=== PATIENT | male | born 1945 | race Caucasian/White ===

== ENCOUNTER 2016-11-21 11:01 | Day surgery (SDC) | payer MEDICARE ==
[~2016-11-21 11:01] MED LIST: Acetaminophen TAB* 325 MG PO PRN; Buffered Lidocaine 1% SYR 3ML* 3 ML/SYR SYRINGE INTRADERM ONE; mitoMYcin PWD* 0.2 MG in Sterile Water for Inj* 1 ML OPHTHALMIC SCH
[2016-11-21] MEDS ORDERED: Lidocaine 2% PF* 10 ML AMP ONE ×2 (12:08→12:10)
[2016-11-21] MEDS ORDERED: Hyaluronidase OVINE* 200 UNIT/ML ML SUBCUT ONE ×2 (12:09→12:12)
[2016-11-21] MEDS ORDERED: Triamcinolone Acetonide* 40 MG/ML 1 ML VIAL ONE (12:10)
[2016-11-21] MEDS ORDERED: Sodium Bicarbonate 8.4% SYR* 10 ML SYRINGE ONE (12:10)
[2016-11-21] MEDS ORDERED: BSS OPTH.SOL* BTL ONE (12:11)
[2016-11-21] MEDS ORDERED: Acetylcholine 1:100 OPTH* OPHTH.SOLN ONE (12:11)
[2016-11-21] MEDS ORDERED: Neomycin/Polymy/Dex OPTH.SUSP* MAXITROL 0.1% 5 ML ONE (12:12)
[2016-11-21] MEDS ORDERED: Povidone Iodine 5% OPTH* 30 ML BTL ONE (12:12)
[2016-11-21] MEDS ORDERED: Lidocaine 2% EPI 1:200000 MPF* 20 ML VIAL ONE (12:12)
[2016-11-21] MEDS ORDERED: fentaNYL* 50 MCG/ML 2 ML VIAL (100 MCG VIAL) ONE (12:51)
[2016-11-21] MEDS ORDERED: Propofol* 10 MG/ML 20 ML BTL IV PUSH ONE (12:51)
[2016-11-21] MEDS ORDERED: Midazolam* 1 MG/ML 5 ML VIAL (5 MG) ONE (12:51)
[2016-11-21] MEDS ORDERED: Proparacaine 0.5% OPHTH.SOL* 15 ML BTL ONE (13:31)
[2016-11-21] MEDS ORDERED: Lidocaine 2% PF * 5 ML VIAL ONE (13:59)
[2016-11-21] MEDS ORDERED: Atropine 1% OPHTH.SOL* 2 ML BOT - 2 ML ONE (14:41)
[2016-11-21 15:29] VITALS: BP 132/70
--- NOTE | 2016-11-22 05:07 | OP ---
DATE OF OPERATION: 11/21/16 - [facility] DATE OF : 43 SURGEON: Harjinder Rossi MD PRE-OP DIAGNOSIS: Uncontrolled glaucoma, right eye. POST-OP DIAGNOSIS: Uncontrolled glaucoma, right eye. OPERATIVE PROCEDURE: Trabeculectomy, right eye. DESCRIPTION OF PROCEDURE: Retrobulbar was given in the operating room, 50:50 mixture of 0.75% Marcaine with 2% lidocaine with epi injected into the muscle cone without difficulty. Eye was prepped and draped in the usual sterile fashion. Lid speculum was placed. A 6-0 silk traction suture was placed through the superior cornea and the eye rotated inferiorly. A fornix-based conjunctival peritomy was performed with Nadeen scissors. Dissection carried down to bare sclera from the 10 o'clock to 12 o'clock position. Mitomycin-C 0.2 mg/mL was placed sub-Tenon's for 1 minute and thoroughly irrigated with balanced salt solution. A half scleral thickness limbal-based scleral flap, rectangular shaped, was created using the crescent blade. Paracentesis made at the 8 o'clock position. Small amount of Miochol checked in the anterior chamber. The anterior chamber was entered with a 3-mm keratome under the scleral flap. Small amount of DisCoVisc was used to maintain the anterior chamber. Trabecular punch was used to remove a 3 x 1 mm trabecular block. Peripheral iridectomy was made with the Vannas scissors. The scleral flap was closed with two 10-0 nylon interrupted sutures. They were fairly loose to allow fluid flow under the flap. The conjunctiva was then closed using a running locking 10-0 nylon suture closure. Traction suture removed. Balanced salt solution used to refill the anterior chamber, sub-Tenon's, Kenalog 40 mg/ mL 1 mL was given, topical atropine and Maxitrol were given, and then the eye was patched. [id number]/[facility] #: [id number] [facility]
== END 2016-11-21 15:49 | disposition home or self-care (01) ==
LOC: OREAST 11:01
PROVIDERS: ATTEND Specialist
DX: H40.1412 Capsular glaucoma with pseudoexfoliation of lens, right eye, moderate stage (principal); J44.9 Chronic obstructive pulmonary disease, unspecified; E10.8 Type 1 diabetes mellitus with unspecified complications; Z79.4 Long term (current) use of insulin
CPT/HCPCS: A9270-GY; J2001; J2250; J2704; J3010; J3301; J3471; J9280

== ENCOUNTER 2016-12-08 12:22 | Emergency (ER) | payer MEDICARE ==
[2016-12-08] MEDS ORDERED: Albuterol/Ipratropium NEB.SOL* Albuterol 2.5 MG/Ipratropium 0.5 MG 3 ML INH ONE (12:59)
--- NOTE | 2016-12-08 14:08 | RAD ---
Indication: COPD. 2 views of the chest are reviewed. Dual-energy PA views were obtained. Hyperinflated lung collazo are noted. There is no evidence of pleural fluid, pneumonia or pneumothorax. IMPRESSION: Hyperinflated lung collazo without evidence of pneumonia. No changes noted since December 26, 2010.
[2016-12-08 14:15] VITALS: BP 124/57
--- NOTE | 2016-12-08 14:36 | UC ---
Otoniel Bruno Salem, scribed for [facility] MD on 12/08/16 at 1310 . Shortness of Breath HPI - HPI Summary HPI Summary: In Room note: Patient is a 71 y/o male who presents to the with SOB and weakness for the past week. He reports he started developing a cold and he suspects it turned into PNA. Pt states he has been using his home O2 almost 24/7 this past week. He denies vomiting, but reports mild and occasional wheezing with recumbent position. He also reports loosing 9lbs within this past week, because of reduced appetite upon onset of sx. He also states his glucose level was at 221 this morning. Pt takes insulin twice a day by injections and uses an inhaler for COPD. Pt looks thin and is on 2L of oxygen by [place]. He also hates the hospital. note: VSS, 98.6F, O2 Sat: 95%, respiratory rate: 36. No EtOH, ppd smoker, quit 6 years ago. On home O2, type 1 DM, pt is on Advair, COPD for 6 years. Visit hx: glaucoma right eye, cataract left eye. Previous visit for PNA. Nurses note: Increased sob x 1 week and lethargy. - History of Current Complaint Chief Complaint: UCRespiratory Stated Complaint: TROUBLE BREATHING Time Seen by Provider: 12/08/16 12:38 Hx Obtained From: Patient, Family/Retail Merchandising Manager - Ex-. Onset/Duration: Gradual Onset, Lasting Days Current Severity: Moderate Aggrevating Factors: Nothing Alleviating Factors: Nothing Associated Signs & Symptoms: Positive: Wheezing - Mild and occasional., Other - Weakness. - Allergy/Home Medications Allergies/Adverse Reactions: Allergies Allergy/AdvReac Type Severity Reaction Status Date / Time No Known Allergies Allergy Verified 12/08/16 12:34 PMH/Surg Hx/FS Hx/Imm Hx Endocrine History Of: Reports: Diabetes - type I diabetis diagnosed age 13 Denies: Thyroid Disease Cardiovascular History Of: Reports: Hypertension - uses medication Denies: Cardiac Disorders Respiratory History Of: Reports: COPD Denies: Asthma GI/ History Of: Denies: Ulcer - Surgical History Surgical History: None - Family History Known Family History: Negative: Hypertension - Social History Alcohol Use: None Substance Use Type: None Smoking Status (MU): Former Smoker Type: Cigarettes Amount Used/How Often: pk a day When Did the Patient Quit Smoking/Using Tobacco: quit 6 six years ago Household Exposure Type: Cigarettes Review of Systems Constitutional: Negative, Other - Weight loss: 9lbs within the past week. Respiratory: Other - Mild and occasional wheezing. Gastrointestinal: Negative All Other Systems Reviewed And Are Negative: Yes Physical Exam Triage Information Reviewed: Yes Appearance: Well-Appearing, No Pain Distress, Thin Vital Signs: Initial Vital Signs Temp 98.6 F 12/08/16 12:27 Pulse 128 12/08/16 12:27 Resp 36 12/08/16 12:27 BP 142/77 12/08/16 12:27 Pulse Ox 95 12/08/16 12:27 Vital Signs Reviewed: Yes Eyes: Positive: Conjunctiva Clear ENT: Positive: Hearing grossly normal, Pharynx normal, TMs normal. Negative: Muffled/hoarse voice Neck: Positive: Supple, Nontender, No Lymphadenopathy Respiratory: Positive: Chest non-tender, Other: - DISTANT BREATH SOUNDS WITH SCATTERED WHEEZES AND RHONCHI. Cardiovascular: Positive: No Murmur - No murmur appreciated., Other: - TACHYCARDIA. Abdomen Description: Positive: Nontender, No Organomegaly, Soft Bowel Sounds: Positive: Present Musculoskeletal: Positive: Strength Intact Neurological: Positive: Alert Psychological: Positive: Age Appropriate Behavior Diagnostics - Radiology CXR Radiology Interpretation Completed By: Radiologist - IMPRESSION: Hyperinflated lung collazo without evidence of pneumonia. No changes noted since December 26, 2010. - EKG Cardiac Rate: Tachycardia - Sinus tachycardic @ 116 bpm. No ischemia. RAD. Re-Evaluation - Re-Evaluation First Eval Re-Evaluation Time: 14:25 Change: Improved Comment: Smiling. Appears less air hungry. Second Eval Re-Evaluation Time: 14:26 Change: Improved Comment: Pulse ox: 94% on room air. [id number]. Shortness of Breath Dx - Course Course Of Treatment: I convinced him to take Albuterol with a spacer and Prednisone. I will also start him on Zithromax. Differential diagnosis: PNA vs bronchitis. - Differential Dx/Diagnosis Provider Diagnoses: Bronchitis with bronchospasm. Discharge - Discharge Plan Condition: Stable Disposition: HOME Prescriptions: Albuterol HFA INHALER* [Ventolin HFA Inhaler*] 1 - 2 puff INH Q6H PRN #1 mdi MDD 6 PRN Reason: Shortness Of Breath Azithromycin TAB* [Zithromax TAB*] 250 mg PO DAILY #6 tab Spacer/Aerosol-Holding Chamber [Aerochamber Mv] 1 mis XX Q6HR #1 mis predniSONE TAB* [Deltasone TAB*] 20 mg PO BID #6 tab MDD 2 Patient Education Materials: Acute Bronchitis (ED), Bronchospasm (ED) Referrals: Allen March MD [Primary Care Provider] - Additional Instructions: WE DISCUSSED: 1. YOU HAVE BRONCHITIS COMPLICATING YOUR COPD. 2. TAKE AN ANTIBIOTIC: ZITHROMAX. 3. TAKE PREDNISONE FOR 3 DAYS. 4. USE ALBUTEROL AND SPACER, 2 PUFFS, 4 TIMES A DAY FOR 3-5 DAYS. 5. CONTINUE USING THE HOME OXYGEN. 6. RE CHECK WITH YOUR DOCTOR ON SATURDAY IF YOU ARE NOT IMPROVING. 7. RECHECK AT ANY TIME FOR INCREASED CHEST PAIN, TEMPERATURE, SHORTNESS OF BREATH OR WORSENING COUGH. The documentation as recorded by the Otoniel saxena Salem accurately reflects the service I personally performed and the decisions made by me, Sujit Pope MD.
== END 2016-12-08 14:46 | disposition home or self-care (01) ==
LOC: UCEAST 12:22
DX: J20.9 Acute bronchitis, unspecified (principal); Z87.891 Personal history of nicotine dependence
CPT/HCPCS: 71020; 93005; 99213; A9270-GY; G0463

== ENCOUNTER 2018-03-13 08:55 | Inpatient (IN) | payer MEDICARE ==
[2018-03-13] MEDS ORDERED: Magnesium Hydroxide LIQ* 30 ML UDC PO PRN (13:05)
[2018-03-13] MEDS ORDERED: Senna TAB PO PRN (13:05)
[2018-03-13] MEDS ORDERED: Dextrose 50% Syringe 50 ML* 25 GM/50 ML SYRINGE IV PUSH PRN (13:19)
[2018-03-13] MEDS ORDERED: HYDROcodone/ACETAMIN 5-325 MG* 1 TAB PO PRN (13:22)
[2018-03-13] MEDS: Insulin LISPRO* 1 UNITS UNIT SUBCUT SCH (16:33)
[2018-03-13] MEDS: Mometasone/Formoter 200/5 MDI INH SCH (20:28)
[2018-03-13] MEDS ORDERED: Insulin NPH(*) 1 UNITS UNIT SUBCUT SCH (21:00)
[2018-03-13] MEDS: Docusate CAP* 100 MG PO SCH (21:05)
--- NOTE | 2018-03-14 00:20 | HP ---
ADMISSION HISTORY AND PHYSICAL: DATE OF ADMISSION: 03/13/18 REASON FOR ADMISSION: Left hip fracture. HISTORY OF PRESENT ILLNESS: Maicol Vargas is a 73-year-old insulin-dependent diabetic. He also has a history of COPD. Apparently, the patient fell in his own home on 03/10/18. The patient's ex- stopped by the house. She noticed his car was in the parking lot. She was unable to get into the apartment. He did eventually call for help while she was knocking on the door. The patient was brought by ambulance to [facility]. EMS reported his blood sugar on the scene was 42. He had x-rays taken in the emergency room. An x- ray of his hip and pelvis showed a displaced angulated intertrochanteric fracture of the proximal left femur. The patient was seen in consultation by Dr. Thaddeus Dale. He was taken to the operating room on 03/11/18. He underwent a gamma nail placement for fixation of the intertrochanteric fracture of the left hip. Postoperatively, Dr. March saw the patient. His insulin doses were adjusted. He did have a Duque catheter placed, which was later removed postoperatively. He had some postop anemia getting down to 7.9 and 23. He was not transfused. The patient was felt to have physical therapy and occupational therapy needs. He is now being admitted for inpatient rehab, so that he might return to independent living. PAST MEDICAL HISTORY: Significant for the aforementioned insulin-dependent diabetes mellitus. He has a history of COPD as well. He has benign prostatic hypertrophy, hypertension, microalbuminuria and glaucoma. CURRENT MEDICATIONS: Include: 1. Insulin, he takes NPH insulin 12 units in the morning, 5 units at night. 2. He also is on regular insulin 7 units in the morning. 3. In addition, he is on Dulera inhaler. 4. He has [place] for chronic pain. 5. Vitamin C. 6. Bowel medications. 7. He is also on Xarelto. ALLERGIES: The patient has no known drug allergies. SOCIAL HISTORY: He lives by himself in a [place]-reema [place] [facility]. He has a son living nearby and his ex-. He is not a smoker and not a drinker, although was a former smoker. REVIEW OF SYSTEMS: The patient reports no current shortness of breath or chest pain. PHYSICAL EXAMINATION VITAL SIGNS: The patient's temperature is 98.1, blood pressure is 146/53, pulse 90, respirations 16. HEENT: His extraocular movements were intact. Tongue is midline. NECK: Supple. LUNGS: Sound clear to auscultation bilaterally. HEART: Sounds are regular. S1, S2 audible. ABDOMEN: Soft and nontender. EXTREMITIES: Left hip has a wound, which is clean and dry. Peripheral pulses were intact. NEUROLOGIC: The patient is awake, alert, oriented. Sensation appears to be intact. Muscle strength is 5/5, except the left leg, which is 3/5 secondary to pain. FUNCTIONAL EXAM: He transfers with minimal amount of assistance. ASSESSMENT: Left hip fracture. PLAN: Our plan is to integrate him into a comprehensive and therapeutic rehab program with the following goals: 1. Physical Therapy will see the patient. They are going to work on functional transfer training, ambulation training with a walker. 2. Occupational Therapy will see the patient, work on his activities of daily living including toileting and toilet transfers. 3. Xarelto for DVT prophylaxis. 4. For his diabetes, we are going to continue his insulin. Dr. March will be consulted as needed. 5. Adequate analgesia. 6. His bowels will be regulated. 7. Flight Crew Scheduler will be closely involved to make sure that any services and equipment the patient requires are in place prior to discharge. 8. For his COPD, we will continue the Dulera inhaler. 9. Family training as appropriate. 10. Home with appropriate services. ESTIMATED LENGTH OF STAY: 10 to 12 days. [id number]/[facility] #: [id number] [place]
[2018-03-14 06:46] LABS: ABS Basophils 0.1 10^3/ul (0-0.2); ABS Eosinophils 0.3 10^3/ul (0-0.6); ABS Monocytes 0.8 10^3/ul (0-0.8); ABS Neutrophils 6.4 10^3/ul (1.5-7.7); ABS Nucleated RBC 0 10^3/ul; Eosinophil % 3.5 % (0-6); Hematocrit 20 % (42-52); Hemoglobin 7.2 g/dl (14.0-18.0); Lymphocyte % 11.9 % (25-47); Mean Corpuscular HGB Conc 36 g/dl (31-36); Mean Corpuscular Hemoglobin 32 pg (27-31); Mean Corpuscular Volume 91 fL (80-94); Mean Platelet Volume 8.9 um3 (7.4-10.4); Nucleated Red Blood Cells % 0; Platelet Count 181 10^3/ul (150-450); Red Blood Count 2.22 10^6/ul (4.00-5.40); Red Cell Distribution Width 14 % (10.5-15); White Blood Count 8.5 10^3/ul (3.5-10.8)
[2018-03-14 06:50] LABS: EGFR Non-African American 112.1 (>60)
[2018-03-14] MEDS: Insulin REGULAR(*) 1 UNITS UNIT SUBCUT SCH (08:04)
[2018-03-14] MEDS: Mometasone/Formoter 200/5 MDI INH SCH ×2 (08:05→20:26)
[2018-03-14] MEDS: Ascorbic Acid TAB* 500 MG PO SCH (08:05)
[2018-03-14] MEDS: Docusate CAP* 100 MG PO SCH ×2 (08:05→20:28)
[2018-03-14] MEDS: Rivaroxaban TAB(*) 10 MG PO SCH (08:05)
[2018-03-14] MEDS: Insulin NPH(*) 1 UNITS UNIT SUBCUT SCH ×2 (08:45→20:34)
[2018-03-14] MEDS: Insulin LISPRO* 1 UNITS UNIT SUBCUT SCH ×2 (12:49→17:33)
--- NOTE | 2018-03-14 12:54 | PMRUTEAM ---
PMRU: Team Meeting Current Status: Nursing: Current Status Skin Deviations [Left Hip] Incision Skin Deviation Description [ drsg in place Left Hip] Physical Therapy: Current Status Bed Mobility Assistance Max Assist Transfer Moblility Assistance Min Assist Transfer/Bed Mobility Rolling Walker Recommended Devices Ambulation Assistance Min Assist 8 feet Ambulation Assistive Devices Rolling Walker Stairs Assistance NT Stairs Recommended Devices Two Rails Number of Stairs 0 Objective Comments pt required max A for sit to supine due to fatigue and shortness of breath Occupational Therapy: Current Status Upper Body Dressing Min Assist Lower Body Dressing Total Assist Bathing Mod Assist Toileting Total Assist Eating Independent Rec Therapy: Current Status Summary of Assessment and Pt. was in his room, open to conversation. Pt. Clinical Impression had many compliants in the beginning of our conversation but was more positive towards the end of our interaction. Pt. identified with interests and involvement in them prior to admission. Pt. was open to continued visits. Treatment Goals Pt. will engage in leisure activities while on the unit. Treatment Plan Provide RT services and encourage involvement. Social Work: Current Status Discharge Plan return home with home care svs and family support Potential for Family Training TBD (pt lives alone) Anticipated Discharge Home Destination Discharge With home care svs and family support Goals: Physical Therapy: Updated Goals Transfer/Bed Mobility Rolling Walker Recommended Devices Occupational Therapy: Initial Goals Goals to be Completed in (Days 14-21 ) Upper Body Bathing Routine Independent Lower Body Bathing Routine Modified Independent with Upper Body Dressing Routine Independent Lower Body Dressing Routine Modified Independent with Toilet Hygeine and Clothing Modified Independent with Management Routine Toilet Transfer Routine Modified Independent with Tub Transfer Routine Modified Independent with Functional Transfers for ADL Modified Independent with Grooming Routine Independent Feeding Routine Independent Light Housekeeping Tasks Modified Independent with Light Housekeeping Tasks light meal prep Assistive Devices Social Work: Goals Discharge Plan return home with home care svs and family support Potential for Family Training TBD (pt lives alone) Anticipated Discharge Home Destination Discharge With home care svs and family support Care Plan: Care Plan ADL's - Improve/Maintain Start: 03/13/18 15:10 Freq: DAILY Status: Active Target: Protocol: Activity Type Activity Date Activity User E-Sign Co-Sign Detail Recorded Client Recorded Date Recorded By Document 03/13/18 15:10 [id number] 03/13/18 15:10 [id number] 03/13/18 15:10 PMRU Outcome: ADL's/ADL Transfers Orders/Interventions Occupational Therapy Evaluation & Treatment Communication Tool in Patient Room Device Yes Address Deficits Secondary To: left hip ORIF Patient to receive OT 5x/wk for 60-120 Therex min/day Self Care Management Group Therapy UE/LE ADL's with Assist Yes: Yadiel ADL Transfers with Assist Yes: Yadiel Toileting: Transfers,Clothing Management Yes: Yadiel ,Hygeine w/Assist Light Kitchen/Laundry w/Assist Yes: Yadiel light meal prep Progression Toward Outcome/Goals Progressing Outcome/Goals Met Pt is a 73 year old male who presented s/p fall after LOC, pt reports approx 5 episodes in the past year due to hypoglycemia , diagnosed wtih left hip fx s/p ORIF, now admitted for acute rehab . Pt with limited strength, endurance, and with increased pain LLE which limits independence with bathing, dressing, toileting, and transfers at this time. Pt will benefit from skilled OT intervention to maximize independence and safety. DVT Prophylaxis- Improve/Maintain Start: 03/13/18 15:37 Freq: QSHIFT Status: Active Target: Protocol: Activity Type Activity Date Activity User E-Sign Co-Sign Detail Recorded Client Recorded Date Recorded By Document 03/14/18 01:52 [id number] 03/14/18 01:51 [id number] 03/14/18 01:52 PMRU Outcome: DVT Prophylaxis Outcome/Goals Demonstrates Knowledge of DVT Prevention/ Treatment TEDS Stockings on Every AM, Off at HS Progression Toward Outcome/Goals Progressing Education-Improve/Maintain Start: 03/13/18 15:37 Freq: QSHIFT Status: Active Target: Protocol: Activity Type Activity Date Activity User E-Sign Co-Sign Detail Recorded Client Recorded Date Recorded By Document 03/14/18 01:52 [id number] 03/14/18 01:51 [id number] 03/14/18 01:52 PMRU Outcome: Education Outcome/Goals Encourage Questions Progression Toward Outcome/Goals Progressing /GI-Improve/Maintain Start: 03/13/18 15:37 Freq: QSHIFT Status: Active Target: Protocol: Activity Type Activity Date Activity User E-Sign Co-Sign Detail Recorded Client Recorded Date Recorded By Document 03/14/18 01:53 [id number] 03/14/18 01:51 [id number] 03/14/18 01:53 PMRU Outcome: Genitourinary/ Gastrointestinal Genitourinary- Outcome/Goals Maintain/ Achieve Adequate Urinary Output Gastrointestinal-Outcome/Goals Maintain/ Achieve Bowel Regularity in Accordance with Pt's Baseline Progression Toward Outcome/Goals - Progressing Medication Administration Start: 03/13/18 15:37 Freq: QSHIFT Status: Active Target: Protocol: Activity Type Activity Date Activity User E-Sign Co-Sign Detail Recorded Client Recorded Date Recorded By Document 03/14/18 01:53 [email or web address] 03/14/18 01:51 03/14/18 01:53 PMRU Outcome: Medication Administration Assess Patient Knowledge/Teach Med Yes Education for all Meds Is Patient Going Home on Lovenox? No Metabolic Status- Improve/Maintain Start: 03/13/18 15:37 Freq: QSHIFT Status: Active Target: Protocol: Activity Type Activity Date Activity User E-Sign Co-Sign Detail Recorded Client Recorded Date Recorded By Document 03/14/18 01:53 [email or web address] 03/14/18 01:51 03/14/18 01:53 PMRU Outcome: Metabolic Status Have Fingersticks Been Ordered Yes Fingerstick Order Frequency AC & HS Outcome/Goals Maintain/ Improve Metabolic Status Progression Toward Outcome/Goals Progressing Pain/Comfort- Improve/Maintain Start: 03/13/18 15:37 Freq: QSHIFT Status: Active Target: Protocol: Activity Type Activity Date Activity User E-Sign Co-Sign Detail Recorded Client Recorded Date Recorded By Document 03/14/18 01:54 [id number] 03/14/18 01:51 03/14/18 01:54 PMRU Outcome: Pain/Comfort Outcome/Goals Demonstrates Knowledge and Use of Available Comfort Measures Achieves Acceptable Comfort/Pain Level as Determined by Patient/Condit Progression Toward Outcome/Goals Progressing Respiratory - Improve/Maintain Start: 03/13/18 15:37 Freq: QSHIFT Status: Active Target: Protocol: Activity Type Activity Date Activity User E-Sign Co-Sign Detail Recorded Client Recorded Date Recorded By Document 03/13/18 20:00 [id number] [id number] 03/14/18 01:51 [id number] 03/13/18 20:00 PMRU Outcome: Respiratory Does Patient Have a Trach No Outcome/Goals Maintain/ Improve Baseline Respiratory Status Prevent Pneumonia/ Atelectasis Progression Toward Outcome/Goals Progressing Safety- Improve/Maintain Start: 03/13/18 15:37 Freq: QSHIFT Status: Active Target: Protocol: Activity Type Activity Date Activity User E-Sign Co-Sign Detail Recorded Client Recorded Date Recorded By Document 03/13/18 20:00 [id number] 03/14/18 01:51 [id number] 03/13/18 20:00 PMRU Outcome: Safety Outcome/Goals Cooperates with Safety Measures for Least Restrictive Environment Prevent Falls/ Injury Progression Toward Outcome/Goals Progressing Skin- Improve/Maintain Start: 03/13/18 15:37 Freq: QSHIFT Status: Active Target: Protocol: Activity Type Activity Date Activity User E-Sign Co-Sign Detail Recorded Client Recorded Date Recorded By Document 03/13/18 20:00 [id number] 03/14/18 01:51 [id number] 03/13/18 20:00 PMRU Outcome: Skin Skin Risk Level Low Skin Orders Air Mattress Dressing Change Comments pillows Outcome/Goals Maintain/ Improve Skin Intergrity Surgical Incisions Healing Progression Toward Outcome/Goals Progressing Medicine Note: Length of Stay: 3 weeks Anticipated Discharge Destination: Home Tentative Discharge Date: 04/04/18 Discharged to: Home
[2018-03-14] MEDS: Albuterol/Ipratropium NEB.SOL* Albuterol 2.5 MG/Ipratropium 0.5 MG 3 ML INH PRN (14:24)
--- NOTE | 2018-03-14 17:01 | PN ---
Progress Note Date of Service: 03/14/18 Note: DEANGELO OLSON was visited. Therapy notes read and reviewed. He had some increased SOB this am. Some wheezing. Responded to DuoNeb treatment. His Hb continued to fall. Transfused 1 unit PRBCs. If continues to fall, may need to hold Xarelto Current Medications: Active Medications Generic Name Dose Route Start Last Admin Trade Name Freq PRN Reason Stop Dose Admin Acetaminophen 650 mg 03/13/18 13:05 Tylenol Tab* PO Q6H PRN FEVER/PAIN Hydrocodone Bitart/Acetaminophen 1 tab 03/13/18 13:22 [place] 5-325 Tab* PO Q4H PRN PAIN - MODERATE TO SEVERE Albuterol/Ipratropium 1 neb 03/14/18 12:40 03/14/18 14:24 Duoneb (Albuterol 2.5 Mg/Ipratropium 0.5 Mg) INH 1 neb Q6H PRN Administration SOB/WHEEZING Ascorbic Acid 500 mg 03/14/18 09:00 03/14/18 08:05 Vitamin C Tab* PO 500 mg DAILY CELENA Administration Dextrose 12.5 gm 03/13/18 13:19 [id number] Syringe 50 Ml* IV PUSH .FOR FS < 60 - SS PRN FS < 60 Docusate Sodium 100 mg 03/13/18 21:00 03/14/18 08:05 Colace Cap* PO 100 mg BID CELENA Administration Insulin Human Lispro 0 - 3 units 03/13/18 17:00 03/14/18 12:49 Humalog* SUBCUT 1 unit 1200,1700 CELENA Administration Protocol Insulin Human NPH 12 units 03/14/18 08:30 03/14/18 08:45 Insulin Nph(*) SUBCUT 12 unit 0830 CELENA Administration Insulin Human NPH 5 units 03/13/18 21:00 03/13/18 21:05 Insulin Nph(*) SUBCUT 5 units BEDTIME CELENA Administration Insulin Human Regular 7 units 03/14/18 07:45 03/14/18 08:04 Insulin Regular(*) SUBCUT 7 unit 0745 CELENA Administration Magnesium Hydroxide 30 ml 03/13/18 13:05 Milk Of Magnesia Liq* PO Q6H PRN CONSTIPATION Mometasone Furoate/Formoterol Fumar 2 puff 03/13/18 21:00 03/14/18 08:05 Dulera 200/5 Mdi* INH 2 puff BID CELENA Administration Rivaroxaban 10 mg 03/14/18 09:00 03/14/18 08:05 Xarelto(*) PO 10 mg DAILY CELENA Administration Senna 2 tab 03/13/18 13:05 Senokot Tab* PO BEDTIME PRN CONSTIPATION Vital Signs: Vital Signs Temp Pulse Resp BP Pulse Ox 99.9 F 94 20 129/40 98 03/14/18 15:40 03/14/18 15:40 03/14/18 15:40 03/14/18 15:40 03/14/18 15:40 Lab Results: Laboratory Results - last 24 hr 03/13/18 03/14/18 03/14/18 20:19 06:18 06:18 WBC 8.5 RBC 2.22 L Hgb 7.2 L Hct 20 L MCV 91 MCH 32 H MCHC 36 RDW 14 Plt Count 181 MPV 8.9 Neut % (Auto) 75.2 Lymph % (Auto) 11.9 L Bailey % (Auto) 8.8 H Eos % (Auto) 3.5 Baso % (Auto) 0.6 Absolute Neuts (auto) 6.4 Absolute Lymphs (auto) 1.0 Absolute Monos (auto) 0.8 Absolute Eos (auto) 0.3 Absolute Basos (auto) 0.1 Absolute Nucleated RBC 0 Nucleated RBC % 0 Sodium 136 Potassium 4.7 Chloride 99 L Carbon Dioxide 33 H Anion Gap 4 BUN 15 Creatinine 0.69 Est GFR ( Amer) 135.6 Est GFR (Non-Af Amer) 112.1 BUN/Creatinine Ratio 21.7 H Glucose 199 H POC Glucose (mg/dL) 265 H Calcium 8.3 L Total Bilirubin 0.70 AST 39 ALT 14 Alkaline Phosphatase 58 Total Protein 4.6 L Albumin 2.5 L Globulin 2.1 Albumin/Globulin Ratio 1.2 Blood Type Antibody Screen Crossmatch 03/14/18 03/14/18 03/14/18 06:18 07:32 12:21 WBC RBC Hgb Hct MCV MCH MCHC RDW Plt Count MPV Neut % (Auto) Lymph % (Auto) Bailey % (Auto) Eos % (Auto) Baso % (Auto) Absolute Neuts (auto) Absolute Lymphs (auto) Absolute Monos (auto) Absolute Eos (auto) Absolute Basos (auto) Absolute Nucleated RBC Nucleated RBC % Sodium Potassium Chloride Carbon Dioxide Anion Gap BUN Creatinine Est GFR ( Amer) Est GFR (Non-Af Amer) BUN/Creatinine Ratio Glucose POC Glucose (mg/dL) 233 H 299 H Calcium Total Bilirubin AST ALT Alkaline Phosphatase Total Protein Albumin Globulin Albumin/Globulin Ratio Blood Type O Positive Antibody Screen Negative Crossmatch See Detail Exam: HEENT: EOMI, O2 via NC LUNGS: Decreased air entry, scattered wheezes HEART: Reg rhythm ABDOMEN: Soft, +BS EXTREMITIES: Wound over left hip C/D/I Assessment/Plan: 1. Left hip fracture: WBAT. PT/OT 2. IDDM: Continue NPH and Regular Insulin 3. HTN: Will reintroduce Lisinopril. Start at 2.5 4. COPD: [place] 5. Acute Blood Loss Anemia: Transfuse 1 unit. May need to hold Xarelto 6. DVT Prophylaxis: Xarelto 7. Advanced Directives: Full Code 03/14/18 17:06
[2018-03-15] MEDS: Insulin REGULAR(*) 1 UNITS UNIT SUBCUT SCH (07:52)
[2018-03-15] MEDS: Rivaroxaban TAB(*) 10 MG PO SCH (08:21)
[2018-03-15] MEDS: Ascorbic Acid TAB* 500 MG PO SCH (08:21)
[2018-03-15] MEDS: Lisinopril TAB* 5 MG PO SCH (08:21)
[2018-03-15] MEDS: Docusate CAP* 100 MG PO SCH ×2 (08:22→20:04)
[2018-03-15] MEDS: Insulin NPH(*) 1 UNITS UNIT SUBCUT SCH ×2 (08:24→20:55)
[2018-03-15] MEDS: Mometasone/Formoter 200/5 MDI INH SCH ×2 (08:25→20:05)
[2018-03-15] MEDS: Insulin LISPRO* 1 UNITS UNIT SUBCUT SCH ×2 (11:41→16:53)
--- NOTE | 2018-03-15 16:33 | PN ---
Progress Note Date of Service: 03/15/18 Note: DEANGELO OLSON was visited. Therapy notes read and reviewed. He feels he is breathing a little better. Nebulizer treatments seem to help. Current Medications: Active Medications Generic Name Dose Route Start Last Admin Trade Name Freq PRN Reason Stop Dose Admin Acetaminophen 650 mg 03/13/18 13:05 Tylenol Tab* PO Q6H PRN FEVER/PAIN Hydrocodone Bitart/Acetaminophen 1 tab 03/13/18 13:22 [place] 5-325 Tab* PO Q4H PRN PAIN - MODERATE TO SEVERE Albuterol/Ipratropium 1 neb 03/14/18 12:40 03/14/18 14:24 Duoneb (Albuterol 2.5 Mg/Ipratropium 0.5 Mg) INH 1 neb Q6H PRN Administration SOB/WHEEZING Ascorbic Acid 500 mg 03/14/18 09:00 03/15/18 08:21 Vitamin C Tab* PO 500 mg DAILY CELENA Administration Dextrose 12.5 gm 03/13/18 13:19 D50w Syringe 50 Ml* IV PUSH .FOR FS < 60 - SS PRN FS < 60 Docusate Sodium 100 mg 03/13/18 21:00 03/15/18 08:22 Colace Cap* PO 100 mg BID CELENA Administration Insulin Human Lispro 0 - 3 units 03/13/18 17:00 03/15/18 11:41 Humalog* SUBCUT Not Given 1200,1700 [facility] Protocol Insulin Human NPH 12 units 03/14/18 08:30 03/15/18 08:24 Insulin Nph(*) SUBCUT 12 unit 0830 CELENA Administration Insulin Human NPH 7 units 03/14/18 21:00 03/14/18 20:34 Insulin Nph(*) SUBCUT 7 units BEDTIME CELENA Administration Insulin Human Regular 7 units 03/14/18 07:45 03/15/18 07:52 Insulin Regular(*) SUBCUT 7 unit 0745 CELENA Administration Lisinopril 2.5 mg 03/15/18 09:00 03/15/18 08:21 Prinivil Tab* PO 2.5 mg DAILY CELENA Administration Magnesium Hydroxide 30 ml 03/13/18 13:05 Milk Of Magnesia Liq* PO Q6H PRN CONSTIPATION Mometasone Furoate/Formoterol Fumar 2 puff 03/13/18 21:00 03/15/18 08:25 Dulera 200/5 Mdi* INH 2 puff BID CELENA Administration Rivaroxaban 10 mg 03/14/18 09:00 03/15/18 08:21 Xarelto(*) PO 10 mg DAILY CELENA Administration Senna 2 tab 03/13/18 13:05 Senokot Tab* PO BEDTIME PRN CONSTIPATION Vital Signs: Vital Signs Temp Pulse Resp BP Pulse Ox 98.2 F 92 20 123/42 100 03/15/18 15:10 03/15/18 15:10 03/15/18 15:10 03/15/18 15:10 03/15/18 15:10 Lab Results: Laboratory Results - last 24 hr 03/14/18 03/14/18 03/14/18 06:18 16:46 20:28 POC Glucose (mg/dL) 262 H 97 Blood Type O Positive Antibody Screen Negative Crossmatch See Detail 03/14/18 03/15/18 03/15/18 20:34 07:38 11:38 POC Glucose (mg/dL) 182 H 225 H 219 H Blood Type Antibody Screen Crossmatch Exam: HEENT: EOMI, O2 via NC LUNGS: Decreased air entry, scattered wheezes HEART: Reg rhythm ABDOMEN: Soft, +BS EXTREMITIES: Wound over left hip C/D/I Assessment/Plan: 1. Left hip fracture: WBAT. PT/OT 2. IDDM: Continue NPH and Regular Insulin 3. HTN: Will reintroduce Lisinopril. Start at 2.5 4. COPD: Dulera, DuoNeb 5. Acute Blood Loss Anemia: Transfuse 1 unit. May need to hold Xarelto. Check CBC in am 6. DVT Prophylaxis: Xarelto 7. Advanced Directives: Full Code 03/15/18 16:33
[2018-03-15] MEDS: Albuterol/Ipratropium NEB.SOL* Albuterol 2.5 MG/Ipratropium 0.5 MG 3 ML INH PRN (20:07)
[2018-03-16] MEDS: Insulin REGULAR(*) 1 UNITS UNIT SUBCUT SCH (07:32)
[2018-03-16] MEDS: Docusate CAP* 100 MG PO SCH ×2 (09:16→20:56)
[2018-03-16] MEDS: Rivaroxaban TAB(*) 10 MG PO SCH (09:16)
[2018-03-16] MEDS: Ascorbic Acid TAB* 500 MG PO SCH (09:16)
[2018-03-16] MEDS: Lisinopril TAB* 5 MG PO SCH (09:16)
[2018-03-16] MEDS: Insulin NPH(*) 1 UNITS UNIT SUBCUT SCH ×2 (09:18→20:59)
[2018-03-16] MEDS: Mometasone/Formoter 200/5 MDI INH SCH ×2 (09:23→19:59)
[2018-03-16] MEDS: Insulin LISPRO* 1 UNITS UNIT SUBCUT SCH ×2 (12:18→17:10)
[2018-03-16] MEDS: Acetaminophen TAB* 325 MG PO PRN ×2 (13:31→20:57)
[2018-03-16] MEDS ORDERED: Albuterol HFA INHALER* 8 gm MDI INH PRN (14:58)
--- NOTE | 2018-03-16 15:02 | PN ---
Progress Note Date of Service: 03/16/18 Note: DEANGELO OLSON was visited. Nursing notes read and reviewed. He seems to be breathing more comfortably today. Will check CBC in am. Otherwise BS are high today. Will increase NPH to 15 units in am, 9 at bedtime. Current Medications: Active Medications Generic Name Dose Route Start Last Admin Trade Name Freq PRN Reason Stop Dose Admin Acetaminophen 650 mg 03/13/18 13:05 03/16/18 13:31 Tylenol Tab* PO 650 mg Q6H PRN Administration FEVER/PAIN Hydrocodone Bitart/Acetaminophen 1 tab 03/13/18 13:22 [place] 5-325 Tab* PO Q4H PRN PAIN - MODERATE TO SEVERE Albuterol 2 puff 03/16/18 14:58 Ventolin Hfa Inhaler* INH Q6H PRN SOB/WHEEZING Albuterol/Ipratropium 1 neb 03/14/18 12:40 03/15/18 20:07 Duoneb (Albuterol 2.5 Mg/Ipratropium 0.5 Mg) INH 1 neb Q6H PRN Administration SOB/WHEEZING Ascorbic Acid 500 mg 03/14/18 09:00 03/16/18 09:16 Vitamin C Tab* PO 500 mg DAILY CELENA Administration Dextrose 12.5 gm 03/13/18 13:19 D50w Syringe 50 Ml* IV PUSH .FOR FS < 60 - SS PRN FS < 60 Docusate Sodium 100 mg 03/13/18 21:00 03/16/18 09:16 Colace Cap* PO Not Given BID [facility] Insulin Human Lispro 0 - 3 units 03/13/18 17:00 03/16/18 12:18 Humalog* SUBCUT 3 unit 1200,1700 CELENA Administration Protocol Insulin Human NPH 7 units 03/14/18 21:00 03/15/18 20:55 Insulin Nph(*) SUBCUT 7 units BEDTIME CELENA Administration Insulin Human NPH 15 units 03/17/18 08:30 Insulin Nph(*) SUBCUT 0830 CELENA Insulin Human Regular 7 units 03/14/18 07:45 03/16/18 07:32 Insulin Regular(*) SUBCUT 7 unit 0745 CELENA Administration Lisinopril 2.5 mg 03/15/18 09:00 03/16/18 09:16 Prinivil Tab* PO 2.5 mg DAILY CELENA Administration Magnesium Hydroxide 30 ml 03/13/18 13:05 Milk Of [place] Liq* PO Q6H PRN CONSTIPATION Mometasone Furoate/Formoterol Fumar 2 puff 03/13/18 21:00 03/16/18 09:23 Dulera 200/5 Mdi* INH 2 puff BID CELENA Administration Rivaroxaban 10 mg 03/14/18 09:00 03/16/18 09:16 Xarelto(*) PO 10 mg DAILY CELENA Administration Senna 2 tab 03/13/18 13:05 Senokot Tab* PO BEDTIME PRN CONSTIPATION Vital Signs: Vital Signs Temp Pulse Resp BP Pulse Ox 99.9 F 83 18 133/50 97 03/16/18 05:16 03/16/18 05:16 03/16/18 13:33 03/16/18 05:16 03/16/18 08:00 Lab Results: Laboratory Results - last 24 hr 03/15/18 03/15/18 03/16/18 16:45 20:21 07:32 POC Glucose (mg/dL) 185 H 176 H 301 H 03/16/18 11:30 POC Glucose (mg/dL) 372 H Exam: HEENT: EOMI, O2 via NC LUNGS: Decreased air entry, scattered wheezes HEART: Reg rhythm ABDOMEN: Soft, +BS EXTREMITIES: Wound over left hip C/D/I Assessment/Plan: 1. Left hip fracture: WBAT. PT/OT 2. IDDM: Continue NPH and Regular Insulin, increase NPH to usual 15 in am, 9 at bedtime 3. HTN: Will reintroduce Lisinopril. Start at 2.5 4. COPD: [place] 5. Acute Blood Loss Anemia: Transfuse 1 unit. May need to hold Xarelto. Check CBC in am 6. DVT Prophylaxis: Xarelto 7. Advanced Directives: Full Code 03/16/18 15:02
[2018-03-16] MEDS ORDERED: Insulin REGULAR(*) 1 UNITS UNIT SUBCUT ONE ×2 (22:05→23:38)
[2018-03-17 06:05] LABS: ABS Basophils 0.1 10^3/ul (0-0.2); ABS Eosinophils 0.5 10^3/ul (0-0.6); ABS Lymphocytes 1.1 10^3/ul (1.0-4.8); ABS Monocytes 0.8 10^3/ul (0-0.8); ABS Neutrophils 5.8 10^3/ul (1.5-7.7); ABS Nucleated RBC 0 10^3/ul; Eosinophil % 6.5 % (0-6); Hematocrit 25 % (42-52); Hemoglobin 8.7 g/dl (14.0-18.0); Lymphocyte % 13.2 % (25-47); Mean Corpuscular HGB Conc 34 g/dl (31-36); Mean Corpuscular Hemoglobin 32 pg (27-31); Mean Corpuscular Volume 93 fL (80-94); Mean Platelet Volume 7.7 um3 (7.4-10.4); Nucleated Red Blood Cells % 0; Platelet Count 361 10^3/ul (150-450); Red Blood Count 2.74 10^6/ul (4.00-5.40); Red Cell Distribution Width 14 % (10.5-15); White Blood Count 8.2 10^3/ul (3.5-10.8)
[2018-03-17] MEDS: Insulin REGULAR(*) 1 UNITS UNIT SUBCUT SCH (07:42)
[2018-03-17] MEDS: Lisinopril TAB* 5 MG PO SCH (08:16)
[2018-03-17] MEDS: Rivaroxaban TAB(*) 10 MG PO SCH (08:17)
[2018-03-17] MEDS: Docusate CAP* 100 MG PO SCH ×2 (08:17→20:59)
[2018-03-17] MEDS: Ascorbic Acid TAB* 500 MG PO SCH (08:17)
[2018-03-17] MEDS: Insulin NPH(*) 1 UNITS UNIT SUBCUT SCH ×2 (08:17→20:58)
[2018-03-17] MEDS: Mometasone/Formoter 200/5 MDI INH SCH ×2 (08:17→20:20)
[2018-03-17] MEDS: Insulin LISPRO* 1 UNITS UNIT SUBCUT SCH ×2 (12:18→18:16)
--- NOTE | 2018-03-17 17:14 | PN ---
Progress Note Date of Service: 03/17/18 Note: DEANGELO OLSON was visited. Therapy notes read and reviewed. He asked about his EEG done on acute service-I told him no seizure activity seen. His blood sugars were quite high last night. Patient states no dietary lapses. Have increased insulin to home levels. Likely he is eating better here than he did at home Current Medications: Active Medications Generic Name Dose Route Start Last Admin Trade Name Freq PRN Reason Stop Dose Admin Acetaminophen 650 mg 03/13/18 13:05 03/16/18 20:57 Tylenol Tab* PO 650 mg Q6H PRN Administration FEVER/PAIN Hydrocodone Bitart/Acetaminophen 1 tab 03/13/18 13:22 [place] 5-325 Tab* PO Q4H PRN PAIN - MODERATE TO SEVERE Albuterol 2 puff 03/16/18 14:58 Ventolin Hfa Inhaler* INH Q6H PRN SOB/WHEEZING Albuterol/Ipratropium 1 neb 03/14/18 12:40 03/15/18 20:07 Duoneb (Albuterol 2.5 Mg/Ipratropium 0.5 Mg) INH 1 neb Q6H PRN Administration SOB/WHEEZING Ascorbic Acid 500 mg 03/14/18 09:00 03/17/18 08:17 Vitamin C Tab* PO 500 mg DAILY CELENA Administration Dextrose 12.5 gm 03/13/18 13:19 D50w Syringe 50 Ml* IV PUSH .FOR FS < 60 - SS PRN FS < 60 Docusate Sodium 100 mg 03/13/18 21:00 03/17/18 08:17 Colace Cap* PO 100 mg BID CELENA Administration Insulin Human Lispro 0 - 3 units 03/13/18 17:00 03/17/18 12:18 Humalog* SUBCUT 2 unit 1200,1700 CELENA Administration Protocol Insulin Human NPH 15 units 03/17/18 08:30 03/17/18 08:17 Insulin Nph(*) SUBCUT 15 unit 0830 CELENA Administration Insulin Human NPH 9 units 03/16/18 21:00 03/16/18 20:59 Insulin Nph(*) SUBCUT 9 units BEDTIME CELENA Administration Insulin Human Regular 7 units 03/14/18 07:45 03/17/18 07:42 Insulin Regular(*) SUBCUT 7 unit 0745 CELENA Administration Lisinopril 2.5 mg 03/15/18 09:00 03/17/18 08:16 Prinivil Tab* PO 2.5 mg DAILY CELENA Administration Magnesium Hydroxide 30 ml 03/13/18 13:05 Milk Of Magnjj Liq* PO Q6H PRN CONSTIPATION Mometasone Furoate/Formoterol Fumar 2 puff 03/13/18 21:00 03/17/18 08:17 Dulera 200/5 Mdi* INH 2 puff BID CELENA Administration Rivaroxaban 10 mg 03/14/18 09:00 03/17/18 08:17 Xarelto(*) PO 10 mg DAILY CELENA Administration Senna 2 tab 03/13/18 13:05 Senokot Tab* PO BEDTIME PRN CONSTIPATION Vital Signs: Vital Signs Temp Pulse Resp BP Pulse Ox 98.4 F 92 22 135/48 99 03/17/18 15:36 03/17/18 15:36 03/17/18 15:36 03/17/18 15:36 03/17/18 15:36 Lab Results: Laboratory Results - last 24 hr 03/16/18 03/16/18 03/16/18 21:02 21:06 21:28 WBC RBC Hgb Hct MCV MCH MCHC RDW Plt Count MPV Neut % (Auto) Lymph % (Auto) [place] % (Auto) Eos % (Auto) Baso % (Auto) Absolute Neuts (auto) Absolute Lymphs (auto) Absolute Monos (auto) Absolute Eos (auto) Absolute Basos (auto) Absolute Nucleated RBC Nucleated RBC % POC Glucose (mg/dL) > 444 H* 427 H* POC Glucose Confirm 421 H 03/16/18 03/17/18 03/17/18 23:33 05:51 07:28 WBC 8.2 RBC 2.74 L Hgb 8.7 L Hct 25 L MCV 93 MCH 32 H MCHC 34 RDW 14 Plt Count 361 MPV 7.7 Neut % (Auto) 70.0 Lymph % (Auto) 13.2 L [place] % (Auto) 9.5 H Eos % (Auto) 6.5 H Baso % (Auto) 0.8 Absolute Neuts (auto) 5.8 Absolute Lymphs (auto) 1.1 Absolute Monos (auto) 0.8 Absolute Eos (auto) 0.5 Absolute Basos (auto) 0.1 Absolute Nucleated RBC 0 Nucleated RBC % 0 POC Glucose (mg/dL) 336 H 291 H POC Glucose Confirm 03/17/18 03/17/18 12:11 16:41 WBC RBC Hgb Hct MCV MCH MCHC RDW Plt Count MPV Neut % (Auto) Lymph % (Auto) [place] % (Auto) Eos % (Auto) Baso % (Auto) Absolute Neuts (auto) Absolute Lymphs (auto) Absolute Monos (auto) Absolute Eos (auto) Absolute Basos (auto) Absolute Nucleated RBC Nucleated RBC % POC Glucose (mg/dL) 332 H 216 H POC Glucose Confirm Exam: HEENT: EOMI, O2 via NC LUNGS: Decreased air entry, scattered wheezes HEART: Reg rhythm ABDOMEN: Soft, +BS EXTREMITIES: Wound over left hip C/D/I Assessment/Plan: 1. Left hip fracture: WBAT. PT/OT 2. IDDM: Continue NPH and Regular Insulin, increased NPH to usual 15 in am, 9 at bedtime 3. HTN: Will reintroduce Lisinopril. Started at 2.5 4. COPD: [place] 5. Acute Blood Loss Anemia: Transfused 1 unit. Hb this am was 8.7 6. DVT Prophylaxis: Xarelto 7. Advanced Directives: Full Code 03/17/18 17:15
[2018-03-17] MEDS: Albuterol/Ipratropium NEB.SOL* Albuterol 2.5 MG/Ipratropium 0.5 MG 3 ML INH PRN (20:19)
[2018-03-17] MEDS ORDERED: Insulin REGULAR(*) 1 UNITS UNIT SUBCUT ONE (23:00)
[2018-03-18] MEDS ORDERED: Insulin REGULAR(*) 1 UNITS UNIT SUBCUT ONE (08:25)
[2018-03-18] MEDS: Mometasone/Formoter 200/5 MDI INH SCH ×2 (08:49→21:45)
[2018-03-18] MEDS: Ascorbic Acid TAB* 500 MG PO SCH (08:49)
[2018-03-18] MEDS: Lisinopril TAB* 5 MG PO SCH (08:49)
[2018-03-18] MEDS: Docusate CAP* 100 MG PO SCH ×2 (08:49→21:07)
[2018-03-18] MEDS: Rivaroxaban TAB(*) 10 MG PO SCH (08:50)
[2018-03-18] MEDS: Insulin NPH(*) 1 UNITS UNIT SUBCUT SCH ×2 (08:51→21:07)
--- NOTE | 2018-03-18 12:24 | PMRUTEAM ---
PMRU: Team Meeting Current Status: Nursing: Current Status Skin Deviations [Left Hip] Incision Skin Deviation Description [ 4x4 to top of incision inplace Left Hip] Physical Therapy: Current Status Bed Mobility Assistance Min Assist Transfer Moblility Assistance Supervision,Contact Guard Assist Transfer/Bed Mobility Rolling Walker Recommended Devices Ambulation Assistance Contact Guard Assist Ambulation Assistive Devices Rolling Walker Number of Feet Patient 2x15', 1x20' Ambulated Stairs Assistance Supervision Stairs Recommended Devices Two Rails Number of Stairs 4 Objective Comments pt required min A to lift LLE into bed Occupational Therapy: Current Status Upper Body Dressing Supervision Lower Body Dressing Mod Assist Bathing Mod Assist Toileting Mod Assist Toilet Transfer Mod Assist Shower Transfer Contact Guard Assist Eating Independent Rec Therapy: Current Status Summary of Assessment and RT assessment complete and pt. is aware of RT Clinical Impression services. Pt. is engaged in leisure visits on the unit. Treatment Goals Pt. will engage in leisure activities while on the unit. Treatment Plan Provide RT services and encourage involvement. Social Work: Current Status Discharge Plan return home with home care svs and family support Potential for Family Training TBD, pt lives alone w/ minimal family support Anticipated Discharge Home Destination Discharge With home care svs and family support Goals: Physical Therapy: Updated Goals Transfer/Bed Mobility Rolling Walker Recommended Devices Occupational Therapy: Initial Goals Goals to be Completed in (Days 14-21 ) Upper Body Bathing Routine Independent Lower Body Bathing Routine Modified Independent with Upper Body Dressing Routine Independent Lower Body Dressing Routine Modified Independent with Toilet Hygeine and Clothing Modified Independent with Management Routine Toilet Transfer Routine Modified Independent with Tub Transfer Routine Modified Independent with Functional Transfers for ADL Modified Independent with Grooming Routine Independent Feeding Routine Independent Light Housekeeping Tasks Modified Independent with Light Housekeeping Tasks light meal prep Assistive Devices Social Work: Goals Discharge Plan return home with home care svs and family support Potential for Family Training TBD, pt lives alone w/ minimal family support Anticipated Discharge Home Destination Discharge With home care svs and family support Care Plan: Care Plan ADL's - Improve/Maintain Start: 03/13/18 15:10 Freq: DAILY Status: Active Target: Protocol: Activity Type Activity Date Activity User E-Sign Co-Sign Detail Recorded Client Recorded Date Recorded By Document 03/18/18 11:27 [id number] 03/18/18 11:27 [id number] 03/18/18 11:27 PMRU Outcome: ADL's/ADL Transfers Orders/Interventions Occupational Therapy Evaluation & Treatment Communication Tool in Patient Room Device Yes Address Deficits Secondary To: left hip ORIF Patient to receive OT 5x/wk for 60-120 Therex min/day Self Care Management Group Therapy UE/LE ADL's with Assist Yes: Yadiel ADL Transfers with Assist Yes: Yadiel Toileting: Transfers,Clothing Management Yes: Yadiel ,Hygeine w/Assist Light Kitchen/Laundry w/Assist Yes: Yadiel light meal prep Progression Toward Outcome/Goals Progressing Outcome/Goals Met Pt. demonstrates increased independence with LB dressing with the use of AE this date. Pt. limited by decreased LLE ROM and pain. DVT Prophylaxis- Improve/Maintain Start: 03/13/18 15:37 Freq: QSHIFT Status: Active Target: Protocol: Activity Type Activity Date Activity User E-Sign Co-Sign Detail Recorded Client Recorded Date Recorded By Document 03/18/18 01:17 [id number] 03/18/18 01:18 [id number] 03/18/18 01:17 PMRU Outcome: DVT Prophylaxis Outcome/Goals Remains Free of DVT Complies with DVT Prophylaxis /Treatment Demonstrates Knowledge of DVT Prevention/ Treatment TEDS Stockings on Every AM, Off at HS Progression Toward Outcome/Goals Progressing Discharge Planning - Improve/Maintain Start: 03/13/18 15:37 Freq: DAILY Status: Active Target: Protocol: Activity Type Activity Date Activity User E-Sign Co-Sign Detail Recorded Client Recorded Date Recorded By Document 03/17/18 03:14 [id number] 03/17/18 03:15 [id number] 03/17/18 03:14 PMRU Outcome: Discharge Planning Update Patient Family Yes Outcome/Goals Demonstrates Understanding of Discharge Plan Progression Toward Outcome/Goals Progressing Education-Improve/Maintain Start: 03/13/18 15:37 Freq: QSHIFT Status: Active Target: Protocol: Activity Type Activity Date Activity User E-Sign Co-Sign Detail Recorded Client Recorded Date Recorded By Document 03/18/18 01:17 [id number] 03/18/18 01:18 [id number] 03/18/18 01:17 PMRU Outcome: Education Outcome/Goals Demonstrates Skills Encourage Questions Progression Toward Outcome/Goals Progressing /GI-Improve/Maintain Start: 03/13/18 15:37 Freq: QSHIFT Status: Active Target: Protocol: Activity Type Activity Date Activity User E-Sign Co-Sign Detail Recorded Client Recorded Date Recorded By Document 03/18/18 01:17 [id number] 03/18/18 01:18 03/18/18 01:17 PMRU Outcome: Genitourinary/ Gastrointestinal Genitourinary- Outcome/Goals Maintain/ Achieve Adequate Urinary Output Remain Free of Hospital- Acquired UTI Gastrointestinal-Outcome/Goals Maintain/ Achieve Bowel Regularity in Accordance with Pt's Baseline Prevent Constipation Laxatives as Ordered Progression Toward Outcome/Goals - Progressing Progression Toward Outcome/Goals - GI Progressing Outcome/Goals Met Comment pt used urinal Medication Administration Start: 03/13/18 15:37 Freq: QSHIFT Status: Active Target: Protocol: Activity Type Activity Date Activity User E-Sign Co-Sign Detail Recorded Client Recorded Date Recorded By Document 03/18/18 01:17 [id number] 03/18/18 01:18 03/18/18 01:17 PMRU Outcome: Medication Administration Assess Patient Knowledge/Teach Med Yes Education for all Meds Outcome/Goals Patient Independent with Medication Administration at Home Demonstrates Understanding Progression Towards Outcome/Goals Progressing Is Patient Going Home on Lovenox? No Metabolic Status- Improve/Maintain Start: 03/13/18 15:37 Freq: QSHIFT Status: Active Target: Protocol: Activity Type Activity Date Activity User E-Sign Co-Sign Detail Recorded Client Recorded Date Recorded By Document 03/18/18 01:17 [email or web address] 03/18/18 01:18 03/18/18 01:17 PMRU Outcome: Metabolic Status Have Fingersticks Been Ordered Yes Fingerstick Order Frequency AC & HS Outcome/Goals Maintain/ Improve Metabolic Status Progression Toward Outcome/Goals Progressing Outcome/Goals Met Comment additional dose of insulin given. BS rechecked an hour post dose Pain/Comfort- Improve/Maintain Start: 03/13/18 15:37 Freq: QSHIFT Status: Active Target: Protocol: Activity Type Activity Date Activity User E-Sign Co-Sign Detail Recorded Client Recorded Date Recorded By Document 03/18/18 01:17 [id number] 03/18/18 01:18 03/18/18 01:17 PMRU Outcome: Pain/Comfort Outcome/Goals Demonstrates Knowledge and Use of Available Comfort Measures Achieves Acceptable Comfort/Pain Level as Determined by Patient/Condit Maintain Comfort Level Allowing Patient to Fully Participate in Rehab Progression Toward Outcome/Goals Progressing Outcome/Goals Met Comment denies pain Respiratory - Improve/Maintain Start: 03/13/18 15:37 Freq: QSHIFT Status: Active Target: Protocol: Activity Type Activity Date Activity User E-Sign Co-Sign Detail Recorded Client Recorded Date Recorded By Document 03/18/18 01:17 [id number] 03/18/18 01:18 [id number] 03/18/18 01:17 PMRU Outcome: Respiratory Does Patient Have a Trach No Outcome/Goals Maintain/ Improve O2 Sat per MD Order Maintain/ Improve Baseline Respiratory Status Prevent Pneumonia/ Atelectasis Remain Aspiration Free Progression Toward Outcome/Goals Progressing Outcome/Goals Met Comment O2 in place Safety- Improve/Maintain Start: 03/13/18 15:37 Freq: QSHIFT Status: Active Target: Protocol: Activity Type Activity Date Activity User E-Sign Co-Sign Detail Recorded Client Recorded Date Recorded By Document 03/18/18 01:17 [id number] 03/18/18 01:18 [id number] 03/18/18 01:17 PMRU Outcome: Safety Outcome/Goals Remain Free of Injury or Harm Cooperates with Safety Measures for Least Restrictive Environment Prevent Falls/ Injury Progression Toward Outcome/Goals Progressing Skin- Improve/Maintain Start: 03/13/18 15:37 Freq: QSHIFT Status: Active Target: Protocol: Activity Type Activity Date Activity User E-Sign Co-Sign Detail Recorded Client Recorded Date Recorded By Document 03/18/18 01:17 [id number] 03/18/18 01:18 [id number] 03/18/18 01:17 PMRU Outcome: Skin Skin Risk Level Low Skin Orders Air Mattress Dressing Change Comments pillows Outcome/Goals Maintain/ Improve Skin Intergrity Free from Decubitus Surgical Incisions Healing Progression Toward Outcome/Goals Progressing Medicine Note: Length of Stay: 2 1/2 weeks Anticipated Discharge Destination: Home Tentative Discharge Date: 04/04/18 Discharged to: Home
[2018-03-18] MEDS: Insulin LISPRO* 1 UNITS UNIT SUBCUT SCH ×2 (14:34→16:16)
[2018-03-18] MEDS: Insulin REGULAR(*) 1 UNITS UNIT SUBCUT SCH (18:28)
--- NOTE | 2018-03-18 18:41 | PN ---
Progress Note Date of Service: 03/18/18 Note: DEANGELO OLSON was visited. Therapy notes read and reviewed. He was discussed in interdisciplinary team rounds. He has made gains. Blood sugars elevated. Will increase regular insulin at noon and 5 pm. Requests nasal spray Current Medications: Active Medications Generic Name Dose Route Start Last Admin Trade Name Freq PRN Reason Stop Dose Admin Acetaminophen 650 mg 03/13/18 13:05 03/16/18 20:57 Tylenol Tab* PO 650 mg Q6H PRN Administration FEVER/PAIN Hydrocodone Bitart/Acetaminophen 1 tab 03/13/18 13:22 [place] 5-325 Tab* PO Q4H PRN PAIN - MODERATE TO SEVERE Albuterol 2 puff 03/16/18 14:58 Ventolin Hfa Inhaler* INH Q6H PRN SOB/WHEEZING Albuterol/Ipratropium 1 neb 03/14/18 12:40 03/17/18 20:19 Duoneb (Albuterol 2.5 Mg/Ipratropium 0.5 Mg) INH 1 neb Q6H PRN Administration SOB/WHEEZING Ascorbic Acid 500 mg 03/14/18 09:00 03/18/18 08:49 Vitamin C Tab* PO 500 mg DAILY CELENA Administration Dextrose 12.5 gm 03/13/18 13:19 D50w Syringe 50 Ml* IV PUSH .FOR FS < 60 - SS PRN FS < 60 Docusate Sodium 100 mg 03/13/18 21:00 03/18/18 08:49 Colace Cap* PO Not Given BID CELENA Insulin Human NPH 15 units 03/17/18 08:30 03/18/18 08:51 Insulin Nph(*) SUBCUT 15 unit 0830 CELENA Administration Insulin Human NPH 9 units 03/16/18 21:00 03/17/18 20:58 Insulin Nph(*) SUBCUT 9 units BEDTIME CELENA Administration Insulin Human Regular 7 units 03/14/18 07:45 03/18/18 18:28 Insulin Regular(*) SUBCUT Not Given 0745 CELENA Lisinopril 2.5 mg 03/15/18 09:00 03/18/18 08:49 Prinivil Tab* PO 2.5 mg DAILY CELENA Administration Magnesium Hydroxide 30 ml 03/13/18 13:05 Milk Of Magnesia Liq* PO Q6H PRN CONSTIPATION Mometasone Furoate/Formoterol Fumar 2 puff 03/13/18 21:00 03/18/18 08:49 Dulera 200/5 Mdi* INH 2 puff BID CELENA Administration Rivaroxaban 10 mg 03/14/18 09:00 03/18/18 08:50 Xarelto(*) PO 10 mg DAILY CELENA Administration Senna 2 tab 03/13/18 13:05 Senokot Tab* PO BEDTIME PRN CONSTIPATION Sodium Chloride 1 spray 03/18/18 18:38 Sodium Chloride 0.65% Nasal [place]* BOTH NARES Q4H PRN CONGESTION Vital Signs: Vital Signs Temp Pulse Resp BP Pulse Ox 98.1 F 93 15 130/38 100 03/18/18 15:12 03/18/18 15:12 03/18/18 15:12 03/18/18 15:12 03/18/18 18:00 Lab Results: Laboratory Results - last 24 hr 03/17/18 03/17/18 03/18/18 22:12 22:25 00:47 POC Glucose (mg/dL) > 444 H* 336 H POC Glucose Confirm 421 H 03/18/18 03/18/18 03/18/18 07:38 12:10 16:13 POC Glucose (mg/dL) 119 H 295 H 250 H POC Glucose Confirm Exam: HEENT: EOMI, O2 via NC LUNGS: Decreased air entry, scattered wheezes HEART: Reg rhythm ABDOMEN: Soft, +BS EXTREMITIES: Wound over left hip C/D/I Assessment/Plan: 1. Left hip fracture: WBAT. PT/OT 2. IDDM: Continue NPH and Regular Insulin, increased NPH to usual 15 in am, 9 at bedtime 3. HTN: Will reintroduce Lisinopril. Started at 2.5 4. COPD: [place] 5. Acute Blood Loss Anemia: Transfused 1 unit. Hb yesterday was 8.7 6. DVT Prophylaxis: Xarelto 7. Advanced Directives: Full Code 03/18/18 18:41
[2018-03-18] MEDS: Saline NASAL SPRAY 0.65%* BTL BOTH NARES PRN (21:05)
[2018-03-18] MEDS: Acetaminophen TAB* 325 MG PO PRN (23:52)
[2018-03-19] MEDS: Insulin REGULAR(*) 1 UNITS UNIT SUBCUT SCH (07:55)
[2018-03-19] MEDS: Ascorbic Acid TAB* 500 MG PO SCH (08:11)
[2018-03-19] MEDS: Rivaroxaban TAB(*) 10 MG PO SCH (08:11)
[2018-03-19] MEDS: Lisinopril TAB* 5 MG PO SCH (08:11)
[2018-03-19] MEDS: Acetaminophen TAB* 325 MG PO PRN ×2 (08:12→19:36)
[2018-03-19] MEDS: Mometasone/Formoter 200/5 MDI INH SCH ×2 (08:16→19:40)
[2018-03-19] MEDS: Docusate CAP* 100 MG PO SCH ×2 (08:17→19:37)
[2018-03-19] MEDS: Insulin NPH(*) 1 UNITS UNIT SUBCUT SCH ×2 (09:08→21:17)
[2018-03-19] MEDS ORDERED: Insulin LISPRO* 1 UNITS UNIT SUBCUT SCH (12:00)
[2018-03-19] MEDS: Insulin LISPRO* 1 UNITS UNIT SUBCUT SCH ×2 (12:02→17:49)
[2018-03-19] MEDS: Saline NASAL SPRAY 0.65%* BTL BOTH NARES PRN ×2 (16:51→21:20)
--- NOTE | 2018-03-19 18:02 | PN ---
Progress Note Date of Service: 03/19/18 Note: DEANGELO OLSON was visited. Therapy notes read and reviewed. He is breathing slightly better and finds therapy a little easier today. Pain ok. Blood sugars lower than yesterday Current Medications: Active Medications Generic Name Dose Route Start Last Admin Trade Name Freq PRN Reason Stop Dose Admin Acetaminophen 650 mg 03/13/18 13:05 03/19/18 08:12 Tylenol Tab* PO 650 mg Q6H PRN Administration FEVER/PAIN Hydrocodone Bitart/Acetaminophen 1 tab 03/13/18 13:22 [place] 5-325 Tab* PO Q4H PRN PAIN - MODERATE TO SEVERE Albuterol 2 puff 03/16/18 14:58 Ventolin Hfa Inhaler* INH Q6H PRN SOB/WHEEZING Albuterol/Ipratropium 1 neb 03/14/18 12:40 03/17/18 20:19 Duoneb (Albuterol 2.5 Mg/Ipratropium 0.5 Mg) INH 1 neb Q6H PRN Administration SOB/WHEEZING Ascorbic Acid 500 mg 03/14/18 09:00 03/19/18 08:11 Vitamin C Tab* PO 500 mg DAILY CELENA Administration Dextrose 12.5 gm 03/13/18 13:19 D50w Syringe 50 Ml* IV PUSH .FOR FS < 60 - SS PRN FS < 60 Docusate Sodium 100 mg 03/13/18 21:00 03/19/18 08:17 Colace Cap* PO Not Given BID CELENA Insulin Human Lispro 0 - 5 units 03/19/18 12:00 03/19/18 17:49 Humalog* SUBCUT Not Given 1200,1700 [facility] Protocol Insulin Human NPH 15 units 03/17/18 08:30 03/19/18 09:08 Insulin Nph(*) SUBCUT 15 unit 0830 CELENA Administration Insulin Human NPH 9 units 03/16/18 21:00 03/18/18 21:07 Insulin Nph(*) SUBCUT 9 units BEDTIME CELENA Administration Insulin Human Regular 7 units 03/14/18 07:45 03/19/18 07:55 Insulin Regular(*) SUBCUT 7 unit 0745 CELENA Administration Lisinopril 2.5 mg 03/15/18 09:00 03/19/18 08:11 Prinivil Tab* PO 2.5 mg DAILY CELENA Administration Magnesium Hydroxide 30 ml 03/13/18 13:05 Milk Of Magnjj Liq* PO Q6H PRN CONSTIPATION Mometasone Furoate/Formoterol Fumar 2 puff 03/13/18 21:00 03/19/18 08:16 Dulera 200/5 Mdi* INH 2 puff BID CELENA Administration Rivaroxaban 10 mg 03/14/18 09:00 03/19/18 08:11 Xarelto(*) PO 10 mg DAILY CELENA Administration Senna 2 tab 03/13/18 13:05 Senokot Tab* PO BEDTIME PRN CONSTIPATION Sodium Chloride 1 spray 03/18/18 18:38 03/19/18 16:51 Sodium Chloride 0.65% Nasal [place]* BOTH NARES 1 drop Q4H PRN Administration CONGESTION Vital Signs: Vital Signs Temp Pulse Resp BP Pulse Ox 97.8 F 85 24 119/49 100 03/19/18 15:28 03/19/18 15:28 03/19/18 15:28 03/19/18 15:28 03/19/18 15:28 Lab Results: Laboratory Results - last 24 hr 03/18/18 03/19/18 03/19/18 20:08 07:28 11:59 POC Glucose (mg/dL) 326 H 102 H 88 03/19/18 16:45 POC Glucose (mg/dL) 82 Exam: HEENT: EOMI, O2 via NC LUNGS: Decreased air entry, scattered wheezes HEART: Reg rhythm ABDOMEN: Soft, +BS EXTREMITIES: Wound over left hip C/D/I Assessment/Plan: 1. Left hip fracture: WBAT. PT/OT 2. IDDM: Continue NPH and Regular Insulin, increased NPH to usual 15 in am, 9 at bedtime 3. HTN: Will reintroduce Lisinopril. Started at 2.5 4. COPD: Dulera, DuoNeb 5. Acute Blood Loss Anemia: Transfused 1 unit. Hb yesterday was 8.7 6. DVT Prophylaxis: Xarelto 7. Advanced Directives: Full Code 03/19/18 18:02
[2018-03-20] MEDS: Insulin NPH(*) 1 UNITS UNIT SUBCUT SCH ×2 (08:41→20:48)
[2018-03-20] MEDS: Ascorbic Acid TAB* 500 MG PO SCH (08:42)
[2018-03-20] MEDS: Lisinopril TAB* 5 MG PO SCH (08:42)
[2018-03-20] MEDS: Insulin REGULAR(*) 1 UNITS UNIT SUBCUT SCH (08:42)
[2018-03-20] MEDS: Rivaroxaban TAB(*) 10 MG PO SCH (08:44)
[2018-03-20] MEDS: Docusate CAP* 100 MG PO SCH ×2 (08:44→20:10)
[2018-03-20] MEDS: Mometasone/Formoter 200/5 MDI INH SCH ×2 (10:29→20:13)
[2018-03-20] MEDS: Saline NASAL SPRAY 0.65%* BTL BOTH NARES PRN ×2 (10:29→20:14)
[2018-03-20] MEDS: Insulin LISPRO* 1 UNITS UNIT SUBCUT SCH ×2 (12:39→16:57)
[2018-03-20] MEDS: Acetaminophen TAB* 325 MG PO PRN (20:08)
[2018-03-20] MEDS ORDERED: Insulin REGULAR(*) 1 UNITS UNIT SUBCUT ONE (21:04)
--- NOTE | 2018-03-20 21:17 | PN ---
Progress Note Date of Service: 03/20/18 Note: DEANGELO OLSON was visited. Therapy notes read and reviewed. Blood sugars are still high at 2100. I think he needs scheduled regular insulin with his dinner. Breathing a little better Current Medications: Active Medications Generic Name Dose Route Start Last Admin Trade Name Freq PRN Reason Stop Dose Admin Acetaminophen 650 mg 03/13/18 13:05 03/20/18 20:08 Tylenol Tab* PO 650 mg Q6H PRN Administration FEVER/PAIN Hydrocodone Bitart/Acetaminophen 1 tab 03/13/18 13:22 [place] 5-325 Tab* PO Q4H PRN PAIN - MODERATE TO SEVERE Albuterol 2 puff 03/16/18 14:58 Ventolin Hfa Inhaler* INH Q6H PRN SOB/WHEEZING Albuterol/Ipratropium 1 neb 03/14/18 12:40 03/17/18 20:19 Duoneb (Albuterol 2.5 Mg/Ipratropium 0.5 Mg) INH 1 neb Q6H PRN Administration SOB/WHEEZING Ascorbic Acid 500 mg 03/14/18 09:00 03/20/18 08:42 Vitamin C Tab* PO 500 mg DAILY CELENA Administration Dextrose 12.5 gm 03/13/18 13:19 D50w Syringe 50 Ml* IV PUSH .FOR FS < 60 - SS PRN FS < 60 Docusate Sodium 100 mg 03/13/18 21:00 03/20/18 20:10 Colace Cap* PO Not Given BID CELENA Insulin Human Lispro 0 - 5 units 03/19/18 12:00 03/20/18 16:57 Humalog* SUBCUT Not Given 1200,1700 [facility] Protocol Insulin Human NPH 15 units 03/17/18 08:30 03/20/18 08:41 Insulin Nph(*) SUBCUT 15 unit 0830 CELENA Administration Insulin Human NPH 9 units 03/16/18 21:00 03/20/18 20:48 Insulin Nph(*) SUBCUT 9 units BEDTIME CELENA Administration Insulin Human Regular 7 units 03/14/18 07:45 03/20/18 08:42 Insulin Regular(*) SUBCUT 7 unit 0745 CELENA Administration Lisinopril 2.5 mg 03/15/18 09:00 03/20/18 08:42 Prinivil Tab* PO 2.5 mg DAILY CELENA Administration Magnesium Hydroxide 30 ml 03/13/18 13:05 Milk Of [place]app[place] Liq* PO Q6H PRN CONSTIPATION Mometasone Furoate/Formoterol Fumar 2 puff 03/13/18 21:00 03/20/18 20:13 Dulera 200/5 Mdi* INH 2 puff BID CELENA Administration Rivaroxaban 10 mg 03/14/18 09:00 03/20/18 08:44 Xarelto(*) PO 10 mg DAILY CELENA Administration Senna 2 tab 03/13/18 13:05 Senokot Tab* PO BEDTIME PRN CONSTIPATION Sodium Chloride 1 spray 03/18/18 18:38 03/20/18 20:14 Sodium Chloride 0.65% Nasal [place]* BOTH NARES 1 drop Q4H PRN Administration CONGESTION Vital Signs: Vital Signs Temp Pulse Resp BP Pulse Ox 97.4 F 98 20 119/49 99 03/20/18 15:12 03/20/18 15:12 03/20/18 20:09 03/20/18 15:12 03/20/18 16:45 Lab Results: Laboratory Results - last 24 hr 03/20/18 03/20/18 03/20/18 08:06 12:26 16:33 Glucose POC Glucose (mg/dL) 201 H 379 H 155 H 03/20/18 03/20/18 20:19 20:29 Glucose 511 H* POC Glucose (mg/dL) > 444 H* Exam: HEENT: EOMI, O2 via NC LUNGS: Decreased air entry, scattered wheezes HEART: Reg rhythm ABDOMEN: Soft, +BS EXTREMITIES: Wound over left hip C/D/I Assessment/Plan: 1. Left hip fracture: WBAT. PT/OT 2. IDDM: Continue NPH and Regular Insulin, increased NPH to usual 15 in am, 9 at bedtime. May add 3 units regular with dinner 3. HTN: Will reintroduce Lisinopril. Started at 2.5 4. COPD: Edith Light 5. Acute Blood Loss Anemia: Transfused 1 unit. 6. DVT Prophylaxis: Xarelto 7. Advanced Directives: Full Code 03/20/18 21:17
--- NOTE | 2018-03-21 05:18 | PN ---
Progress Note Date of Service: 03/21/18 Note: DEANGELO OLSON was visited. Therapy notes read and reviewed. He feels good this morning. Blood sugar quite high last night. May need scheduled dose of regular with 1700 meal. Breathing is better Current Medications: Active Medications Generic Name Dose Route Start Last Admin Trade Name Freq PRN Reason Stop Dose Admin Acetaminophen 650 mg 03/13/18 13:05 03/20/18 20:08 Tylenol Tab* PO 650 mg Q6H PRN Administration FEVER/PAIN Hydrocodone Bitart/Acetaminophen 1 tab 03/13/18 13:22 [place] 5-325 Tab* PO Q4H PRN PAIN - MODERATE TO SEVERE Albuterol 2 puff 03/16/18 14:58 Ventolin Hfa Inhaler* INH Q6H PRN SOB/WHEEZING Albuterol/Ipratropium 1 neb 03/14/18 12:40 03/17/18 20:19 Duoneb (Albuterol 2.5 Mg/Ipratropium 0.5 Mg) INH 1 neb Q6H PRN Administration SOB/WHEEZING Ascorbic Acid 500 mg 03/14/18 09:00 03/20/18 08:42 Vitamin C Tab* PO 500 mg DAILY CELENA Administration Dextrose 12.5 gm 03/13/18 13:19 D50w Syringe 50 Ml* IV PUSH .FOR FS < 60 - SS PRN FS < 60 Docusate Sodium 100 mg 03/13/18 21:00 03/20/18 20:10 Colace Cap* PO Not Given BID CELENA Insulin Human Lispro 0 - 5 units 03/19/18 12:00 03/20/18 16:57 Humalog* SUBCUT Not Given 1200,1700 [facility] Protocol Insulin Human NPH 15 units 03/17/18 08:30 03/20/18 08:41 Insulin Nph(*) SUBCUT 15 unit 0830 CELENA Administration Insulin Human NPH 9 units 03/16/18 21:00 03/20/18 20:48 Insulin Nph(*) SUBCUT 9 units BEDTIME CELENA Administration Insulin Human Regular 7 units 03/14/18 07:45 03/20/18 08:42 Insulin Regular(*) SUBCUT 7 unit 0745 CELENA Administration Lisinopril 2.5 mg 03/15/18 09:00 03/20/18 08:42 Prinivil Tab* PO 2.5 mg DAILY CELENA Administration Magnesium Hydroxide 30 ml 06/21/18 13:05 Milk Of [place]app[place] Liq* PO Q6H PRN CONSTIPATION Mometasone Furoate/Formoterol Fumar 2 puff 03/13/18 21:00 03/20/18 20:13 Dulera 200/5 Mdi* INH 2 puff BID CELENA Administration Rivaroxaban 10 mg 03/14/18 09:00 03/20/18 08:44 Xarelto(*) PO 10 mg DAILY CELENA Administration Senna 2 tab 03/13/18 13:05 Senokot Tab* PO BEDTIME PRN CONSTIPATION Sodium Chloride 1 spray 03/18/18 18:38 03/20/18 20:14 Sodium Chloride 0.65% Nasal [place]* BOTH NARES 1 drop Q4H PRN Administration CONGESTION Vital Signs: Vital Signs Temp Pulse Resp BP Pulse Ox 97.4 F 98 20 119/49 99 03/20/18 15:12 03/20/18 15:12 03/20/18 20:09 03/20/18 15:12 03/20/18 16:45 Lab Results: Laboratory Results - last 24 hr 03/20/18 03/20/18 03/20/18 08:06 12:26 16:33 Glucose POC Glucose (mg/dL) 201 H 379 H 155 H 03/20/18 03/20/18 20:19 20:29 Glucose 511 H* POC Glucose (mg/dL) > 444 H* Exam: HEENT: EOMI, O2 via NC LUNGS: Decreased air entry, scattered wheezes HEART: Reg rhythm ABDOMEN: Soft, +BS EXTREMITIES: Wound over left hip C/D/I Assessment/Plan: 1. Left hip fracture: WBAT. PT/OT 2. IDDM: Continue NPH and Regular Insulin, increased NPH to usual 15 in am, 9 at bedtime. May add 3 units regular with dinner 3. HTN: Will reintroduce Lisinopril. Started at 2.5 4. COPD: Edith Light 5. Acute Blood Loss Anemia: Check CBC 6. DVT Prophylaxis: Xarelto 7. Advanced Directives: Full Code 03/21/18 05:18
[2018-03-21 07:15] LABS: ABS Basophils 0.1 10^3/ul (0-0.2); ABS Eosinophils 0.2 10^3/ul (0-0.6); ABS Lymphocytes 1.2 10^3/ul (1.0-4.8); ABS Monocytes 0.6 10^3/ul (0-0.8); ABS Neutrophils 7.1 10^3/ul (1.5-7.7); ABS Nucleated RBC 0 10^3/ul; Eosinophil % 2.4 % (0-6); Hematocrit 28 % (42-52); Hemoglobin 9.5 g/dl (14.0-18.0); Lymphocyte % 12.8 % (25-47); Mean Corpuscular HGB Conc 34 g/dl (31-36); Mean Corpuscular Hemoglobin 32 pg (27-31); Mean Corpuscular Volume 94 fL (80-94); Mean Platelet Volume 7.1 um3 (7.4-10.4); Nucleated Red Blood Cells % 0.1; Platelet Count 594 10^3/ul (150-450); Red Blood Count 2.98 10^6/ul (4.00-5.40); Red Cell Distribution Width 15 % (10.5-15); White Blood Count 9.1 10^3/ul (3.5-10.8)
[2018-03-21 07:40] LABS: EGFR Non-African American 110.2 (>60)
[2018-03-21] MEDS: Insulin REGULAR(*) 1 UNITS UNIT SUBCUT SCH (08:00)
[2018-03-21] MEDS: Lisinopril TAB* 5 MG PO SCH (08:51)
[2018-03-21] MEDS: Rivaroxaban TAB(*) 10 MG PO SCH (08:51)
[2018-03-21] MEDS: Docusate CAP* 100 MG PO SCH ×2 (08:51→19:46)
[2018-03-21] MEDS: Ascorbic Acid TAB* 500 MG PO SCH (08:51)
[2018-03-21] MEDS: Insulin NPH(*) 1 UNITS UNIT SUBCUT SCH ×2 (08:52→20:57)
[2018-03-21] MEDS: Saline NASAL SPRAY 0.65%* BTL BOTH NARES PRN ×2 (09:49→20:56)
[2018-03-21] MEDS: Mometasone/Formoter 200/5 MDI INH SCH ×2 (09:51→20:55)
[2018-03-21] MEDS: Insulin LISPRO* 1 UNITS UNIT SUBCUT SCH ×2 (12:28→16:43)
[2018-03-21] MEDS: Acetaminophen TAB* 325 MG PO PRN (20:55)
[2018-03-22] MEDS: Rivaroxaban TAB(*) 10 MG PO SCH (09:02)
[2018-03-22] MEDS: Docusate CAP* 100 MG PO SCH ×2 (09:03→20:10)
[2018-03-22] MEDS: Ascorbic Acid TAB* 500 MG PO SCH (09:03)
[2018-03-22] MEDS: Lisinopril TAB* 5 MG PO SCH (09:03)
[2018-03-22] MEDS: Insulin REGULAR(*) 1 UNITS UNIT SUBCUT SCH (09:05)
[2018-03-22] MEDS: Insulin NPH(*) 1 UNITS UNIT SUBCUT SCH ×2 (09:05→20:54)
[2018-03-22] MEDS: Mometasone/Formoter 200/5 MDI INH SCH ×2 (09:52→21:10)
[2018-03-22] MEDS: Saline NASAL SPRAY 0.65%* BTL BOTH NARES PRN (09:54)
--- NOTE | 2018-03-22 11:50 | PN ---
Progress Note Date of Service: 03/22/18 Note: DEANGELO OLSON was visited. Nursing and therapy notes read and reviewed. No chest pain, shortness of breath or abdominal pain. FS 85 this morning. At home he often adjusts his insulin by 1u depending on FS. No chest pain, shortness of breath or abdominal pain. Current Medications: Active Medications Generic Name Dose Route Start Last Admin Trade Name Freq PRN Reason Stop Dose Admin Acetaminophen 650 mg 03/13/18 13:05 03/21/18 20:55 Tylenol Tab* PO 650 mg Q6H PRN Administration FEVER/PAIN Hydrocodone Bitart/Acetaminophen 1 tab 03/13/18 13:22 [place] 5-325 Tab* PO Q4H PRN PAIN - MODERATE TO SEVERE Albuterol 2 puff 03/16/18 14:58 Ventolin Hfa Inhaler* INH Q6H PRN SOB/WHEEZING Albuterol/Ipratropium 1 neb 03/14/18 12:40 03/17/18 20:19 Duoneb (Albuterol 2.5 Mg/Ipratropium 0.5 Mg) INH 1 neb Q6H PRN Administration SOB/WHEEZING Ascorbic Acid 500 mg 03/14/18 09:00 03/22/18 09:03 Vitamin C Tab* PO 500 mg DAILY CELENA Administration Dextrose 12.5 gm 03/13/18 13:19 D50w Syringe 50 Ml* IV PUSH .FOR FS < 60 - SS PRN FS < 60 Docusate Sodium 100 mg 03/13/18 21:00 03/22/18 09:03 Colace Cap* PO 100 mg BID CELENA Administration Insulin Human Lispro 0 - 5 units 03/19/18 12:00 03/21/18 16:43 Humalog* SUBCUT Not Given 1200,1700 [facility] Protocol Insulin Human NPH 15 units 03/17/18 08:30 03/22/18 09:05 Insulin Nph(*) SUBCUT 15 unit 0830 CELENA Administration Insulin Human NPH 9 units 03/16/18 21:00 03/21/18 20:57 Insulin Nph(*) SUBCUT 9 units BEDTIME CELENA Administration Insulin Human Regular 7 units 03/14/18 07:45 03/22/18 09:05 Insulin Regular(*) SUBCUT 7 unit 0745 CELENA Administration Lisinopril 2.5 mg 03/15/18 09:00 03/22/18 09:03 Prinivil Tab* PO 2.5 mg DAILY CELENA Administration Magnesium Hydroxide 30 ml 03/13/18 13:05 Milk Of Magnjj Liq* PO Q6H PRN CONSTIPATION Mometasone Furoate/Formoterol Fumar 2 puff 03/13/18 21:00 03/22/18 09:52 Dulera 200/5 Mdi* INH 2 puff BID CELENA Administration Rivaroxaban 10 mg 03/14/18 09:00 03/22/18 09:02 Xarelto(*) PO 10 mg DAILY CELENA Administration Senna 2 tab 03/13/18 13:05 Senokot Tab* PO BEDTIME PRN CONSTIPATION Sodium Chloride 1 spray 03/18/18 18:38 03/22/18 09:54 Sodium Chloride 0.65% Nasal [place]* BOTH NARES 1 drop Q4H PRN Administration CONGESTION Vital Signs: Vital Signs Temp Pulse Resp BP Pulse Ox 98.2 F 71 18 128/44 100 03/22/18 06:03 03/22/18 06:03 03/22/18 06:03 03/22/18 06:03 03/22/18 08:00 Lab Results: Laboratory Results - last 24 hr 03/21/18 03/21/18 03/22/18 16:36 20:24 07:40 POC Glucose (mg/dL) 144 H 385 H 85 Exam: GEN: no acute distress. alert and appropriate. LUNGS: clear bilaterally but poor air movement consistent with h/o copd CV: regular rate and rhythm ABD: + bowel sounds, soft, non-tender, non-distended EXT: no edema Assessment/Plan: 73yo man with DM and COPD s/p left hip fracture. 1. Left hip fracture: WBAT. PT/OT 2. IDDM: Continue NPH and Regular Insulin. He is on his home regimen of NPH 15u qam and 9u qhs. In addition uses Regular 7u qam. Consider adding 3 units of regular with dinner pending FS results. 3. HTN: Lisinopril 2.5mg. BP stable. 4. COPD: Enrique LightoNeb. Oxygen prn. I d/w nursing not giving him too much as O2sat 100%. He uses intermittently at home. 5. Acute Blood Loss Anemia: CBC stable. Check at least weekly. 6. DVT Prophylaxis: Xarelto 7. Advanced Directives: Full Code 8. Estimated LOS: anticipate discharge on 04/04. 03/22/18 11:50
[2018-03-22] MEDS: Insulin LISPRO* 1 UNITS UNIT SUBCUT SCH ×2 (11:53→16:32)
[2018-03-23] MEDS: Docusate CAP* 100 MG PO SCH ×2 (10:03→21:00)
[2018-03-23] MEDS: Rivaroxaban TAB(*) 10 MG PO SCH (10:03)
[2018-03-23] MEDS: Ascorbic Acid TAB* 500 MG PO SCH (10:03)
[2018-03-23] MEDS: Insulin NPH(*) 1 UNITS UNIT SUBCUT SCH ×3 (10:05→20:58)
[2018-03-23] MEDS: Insulin REGULAR(*) 1 UNITS UNIT SUBCUT SCH ×2 (10:06→10:22)
[2018-03-23] MEDS: Lisinopril TAB* 5 MG PO SCH (10:10)
[2018-03-23] MEDS: Mometasone/Formoter 200/5 MDI INH SCH ×2 (10:23→20:15)
[2018-03-23] MEDS: Saline NASAL SPRAY 0.65%* BTL BOTH NARES PRN (10:30)
--- NOTE | 2018-03-23 11:22 | PN ---
Progress Note Date of Service: 03/23/18 Note: DEANGELO OLSON was visited. Nursing notes read and reviewed. FS this morning is 63. No chest pain, shortness of breath or abdominal pain. Current Medications: Active Medications Generic Name Dose Route Start Last Admin Trade Name Freq PRN Reason Stop Dose Admin Acetaminophen 650 mg 03/13/18 13:05 03/21/18 20:55 Tylenol Tab* PO 650 mg Q6H PRN Administration FEVER/PAIN Hydrocodone Bitart/Acetaminophen 1 tab 03/13/18 13:22 [place] 5-325 Tab* PO Q4H PRN PAIN - MODERATE TO SEVERE Albuterol 2 puff 03/16/18 14:58 Ventolin Hfa Inhaler* INH Q6H PRN SOB/WHEEZING Albuterol/Ipratropium 1 neb 03/14/18 12:40 03/17/18 20:19 Duoneb (Albuterol 2.5 Mg/Ipratropium 0.5 Mg) INH 1 neb Q6H PRN Administration SOB/WHEEZING Ascorbic Acid 500 mg 03/14/18 09:00 03/23/18 10:03 Vitamin C Tab* PO 500 mg DAILY CELENA Administration Dextrose 12.5 gm 03/13/18 13:19 D50w Syringe 50 Ml* IV PUSH .FOR FS < 60 - SS PRN FS < 60 Docusate Sodium 100 mg 03/13/18 21:00 03/23/18 10:03 Colace Cap* PO Not Given BID CELENA Insulin Human Lispro 0 - 5 units 03/19/18 12:00 03/22/18 16:32 Humalog* SUBCUT Not Given 1200,1700 [facility] Protocol Insulin Human NPH 9 units 03/16/18 21:00 03/22/18 20:54 Insulin Nph(*) SUBCUT 9 units BEDTIME CELENA Administration Insulin Human NPH 14 units 03/23/18 10:00 03/23/18 10:05 Insulin Nph(*) SUBCUT 14 units 0830 CELENA Administration Insulin Human Regular 6 units 03/23/18 10:00 03/23/18 10:06 Insulin Regular(*) SUBCUT 6 unit 0745 CELENA Administration Lisinopril 2.5 mg 03/15/18 09:00 03/23/18 10:10 Prinivil Tab* PO 2.5 mg DAILY CELENA Administration Magnesium Hydroxide 30 ml 03/13/18 13:05 Milk Of Magnesia Liq* PO Q6H PRN CONSTIPATION Mometasone Furoate/Formoterol Fumar 2 puff 03/13/18 21:00 03/23/18 10:23 Dulera 200/5 Mdi* INH 2 puff BID CELENA Administration Rivaroxaban 10 mg 03/14/18 09:00 03/23/18 10:03 Xarelto(*) PO 10 mg DAILY CELENA Administration Senna 2 tab 03/13/18 13:05 Senokot Tab* PO BEDTIME PRN CONSTIPATION Sodium Chloride 1 spray 03/18/18 18:38 03/23/18 10:30 Sodium Chloride 0.65% Nasal [place]* BOTH NARES 1 drop Q4H PRN Administration CONGESTION Vital Signs: Vital Signs Temp Pulse Resp BP Pulse Ox 98.0 F 79 16 130/47 94 03/23/18 05:42 03/23/18 05:42 03/23/18 08:00 03/23/18 05:42 03/23/18 08:00 Lab Results: Laboratory Results - last 24 hr 03/22/18 03/22/18 03/22/18 11:52 16:29 20:11 POC Glucose (mg/dL) 151 H 79 301 H 03/23/18 07:16 POC Glucose (mg/dL) 63 L Exam: GEN: no acute distress. alert and appropriate. LUNGS: clear bilaterally but poor air movement consistent with h/o copd CV: regular rate and rhythm ABD: + bowel sounds, soft, non-tender, non-distended EXT: no edema SKIN: Incision c/d/i PROCEDURE: Frederic removed and steri strips placed. No complications. Assessment/Plan: 73yo man with DM and COPD s/p left hip fracture. 1. Left hip fracture s/p gamma nail: WBAT. PT/OT. Frederic ou 03/23/18. f/u with Dr. Dale after d/c. 2. IDDM: Continue NPH and Regular Insulin. Home regimen is NPH 15u qam and 9u qhs. Then Regular 7u qam. He reports at home with this morning FS he would decrease NPH to 14u and regular to 6u this morning, which was done. He is eating. Consider adding 3 units of regular with dinner pending FS results. 3. HTN: Lisinopril 2.5mg. BP stable. 4. COPD: Edith Light. Oxygen prn. I d/w nursing not giving him too much as O2sat 100%. He uses intermittently at home. 5. Acute Blood Loss Anemia: CBC stable. Check at least weekly. 6. DVT Prophylaxis: Xarelto 7. Advanced Directives: Full Code 8. Estimated LOS: anticipate discharge on 04/04. 03/23/18 11:20
[2018-03-23] MEDS: Insulin LISPRO* 1 UNITS UNIT SUBCUT SCH ×2 (12:39→17:32)
[2018-03-23] MEDS: Albuterol/Ipratropium NEB.SOL* Albuterol 2.5 MG/Ipratropium 0.5 MG 3 ML INH PRN (20:15)
[2018-03-24] MEDS: Insulin REGULAR(*) 1 UNITS UNIT SUBCUT SCH (08:27)
[2018-03-24] MEDS: Docusate CAP* 100 MG PO SCH ×2 (08:28→20:57)
[2018-03-24] MEDS: Lisinopril TAB* 5 MG PO SCH (08:28)
[2018-03-24] MEDS: Ascorbic Acid TAB* 500 MG PO SCH (08:28)
[2018-03-24] MEDS: Insulin NPH(*) 1 UNITS UNIT SUBCUT SCH (08:28)
[2018-03-24] MEDS: Rivaroxaban TAB(*) 10 MG PO SCH (08:29)
[2018-03-24] MEDS: Mometasone/Formoter 200/5 MDI INH SCH ×2 (10:13→20:02)
[2018-03-24] MEDS: Insulin LISPRO* 1 UNITS UNIT SUBCUT SCH ×2 (12:00→17:37)
--- NOTE | 2018-03-24 12:45 | PN ---
Progress Note Date of Service: 03/24/18 Note: DEANGELO BANGURAKINS was visited. Therapy notes read and reviewed. Current Medications: Active Medications Generic Name Dose Route Start Last Admin Trade Name Freq PRN Reason Stop Dose Admin Acetaminophen 650 mg 03/13/18 13:05 03/21/18 20:55 Tylenol Tab* PO 650 mg Q6H PRN Administration FEVER/PAIN Hydrocodone Bitart/Acetaminophen 1 tab 03/13/18 13:22 [place] 5-325 Tab* PO Q4H PRN PAIN - MODERATE TO SEVERE Albuterol 2 puff 03/16/18 14:58 Ventolin Hfa Inhaler* INH Q6H PRN SOB/WHEEZING Albuterol/Ipratropium 1 neb 03/14/18 12:40 03/23/18 20:15 Duoneb (Albuterol 2.5 Mg/Ipratropium 0.5 Mg) INH 1 neb Q6H PRN Administration SOB/WHEEZING Ascorbic Acid 500 mg 03/14/18 09:00 03/24/18 08:28 Vitamin C Tab* PO 500 mg DAILY CELENA Administration Dextrose 12.5 gm 03/13/18 13:19 D50w Syringe 50 Ml* IV PUSH .FOR FS < 60 - SS PRN FS < 60 Docusate Sodium 100 mg 03/13/18 21:00 03/24/18 08:28 Colace Cap* PO 100 mg BID CELENA Administration Insulin Human Lispro 0 - 5 units 03/19/18 12:00 03/23/18 17:32 Humalog* SUBCUT Not Given 1200,1700 [facility] Protocol Insulin Human NPH 14 units 03/23/18 10:00 03/24/18 08:28 Insulin Nph(*) SUBCUT 14 units 0830 CELENA Administration Insulin Human NPH 8 units 03/24/18 21:00 Insulin Nph(*) SUBCUT BEDTIME CELENA Insulin Human Regular 6 units 03/23/18 10:00 03/24/18 08:27 Insulin Regular(*) SUBCUT 6 unit 0745 CELENA Administration Lisinopril 2.5 mg 03/15/18 09:00 03/24/18 08:28 Prinivil Tab* PO 2.5 mg DAILY CELENA Administration Magnesium Hydroxide 30 ml 03/13/18 13:05 Milk Of Magnesia Liq* PO Q6H PRN CONSTIPATION Mometasone Furoate/Formoterol Fumar 2 puff 03/13/18 21:00 03/24/18 10:13 [place] 200/5 Mdi* INH 2 puff BID CELENA Administration Rivaroxaban 10 mg 03/14/18 09:00 03/24/18 08:29 Xarelto(*) PO 10 mg DAILY CELENA Administration Senna 2 tab 03/13/18 13:05 Senokot Tab* PO BEDTIME PRN CONSTIPATION Sodium Chloride 1 spray 03/18/18 18:38 03/23/18 10:30 Sodium Chloride 0.65% Nasal [place]* BOTH NARES 1 drop Q4H PRN Administration CONGESTION Vital Signs: Vital Signs Temp Pulse Resp BP Pulse Ox 98.1 F 74 18 129/50 96 03/24/18 05:55 03/24/18 05:55 03/24/18 05:55 03/24/18 05:55 03/24/18 05:55 Lab Results: Laboratory Results - last 24 hr 03/23/18 03/23/18 03/24/18 16:50 20:17 07:37 POC Glucose (mg/dL) 87 235 H 80 03/24/18 11:46 POC Glucose (mg/dL) 142 H Exam: GEN: no acute distress. alert and appropriate. LUNGS: clear bilaterally but poor air movement consistent with h/o copd CV: regular rate and rhythm ABD: + bowel sounds, soft, non-tender, non-distended EXT: no edema SKIN: Incision c/d/i Assessment/Plan: 73yo man with DM and COPD s/p left hip fracture. 1. Left hip fracture s/p gamma nail: WBAT. PT/OT. Frederic ou 03/23/18. f/u with Dr. Dale after d/c. 2. IDDM: Continue NPH and Regular Insulin. Home regimen is NPH 15u qam and 9u qhs. Then Regular 7u qam. Currently on NPH to 14u and regular to 6u QAM. I will decrease PM NPH given morning mild hypoglycemia. He is eating. Consider adding 3 units of regular with dinner pending FS results. 3. HTN: Lisinopril 2.5mg. BP stable. 4. COPD: DulEnrique bernabeoNeb. Oxygen prn. I d/w nursing not giving him too much as O2sat 100%. He uses intermittently at home. 5. Acute Blood Loss Anemia: CBC stable. Check at least weekly. 6. DVT Prophylaxis: Xarelto 7. Advanced Directives: Full Code 8. Estimated LOS: anticipate discharge on 04/04. 03/24/18 12:43
[2018-03-24] MEDS ORDERED: Insulin NPH(*) 1 UNITS UNIT SUBCUT SCH (21:00)
[2018-03-25] MEDS: Acetaminophen TAB* 325 MG PO PRN ×2 (00:10→22:57)
[2018-03-25] MEDS: Ascorbic Acid TAB* 500 MG PO SCH (07:57)
[2018-03-25] MEDS: Docusate CAP* 100 MG PO SCH ×2 (07:57→21:00)
[2018-03-25] MEDS: Lisinopril TAB* 5 MG PO SCH (07:57)
[2018-03-25] MEDS: Rivaroxaban TAB(*) 10 MG PO SCH (07:58)
[2018-03-25] MEDS: Mometasone/Formoter 200/5 MDI INH SCH ×2 (07:58→20:58)
[2018-03-25] MEDS: Insulin REGULAR(*) 1 UNITS UNIT SUBCUT SCH (07:58)
[2018-03-25] MEDS: Insulin NPH(*) 1 UNITS UNIT SUBCUT SCH ×2 (07:59→20:57)
--- NOTE | 2018-03-25 09:27 | PN ---
Progress Note Date of Service: 03/25/18 Note: DEANGELO OLSON was visited. Nursing and therapy notes read and reviewed. No chest pain, shortness of breath or abdominal pain. He had a low FS in the middle of the night when he felt diaphoretic. Resolved with snack. Current Medications: Active Medications Generic Name Dose Route Start Last Admin Trade Name Freq PRN Reason Stop Dose Admin Acetaminophen 650 mg 03/13/18 13:05 03/25/18 00:10 Tylenol Tab* PO 650 mg Q6H PRN Administration FEVER/PAIN Hydrocodone Bitart/Acetaminophen 1 tab 03/13/18 13:22 [place] 5-325 Tab* PO Q4H PRN PAIN - MODERATE TO SEVERE Albuterol 2 puff 03/16/18 14:58 Ventolin Hfa Inhaler* INH Q6H PRN SOB/WHEEZING Albuterol/Ipratropium 1 neb 03/14/18 12:40 03/23/18 20:15 Duoneb (Albuterol 2.5 Mg/Ipratropium 0.5 Mg) INH 1 neb Q6H PRN Administration SOB/WHEEZING Ascorbic Acid 500 mg 03/14/18 09:00 03/25/18 07:57 Vitamin C Tab* PO 500 mg DAILY CELENA Administration Dextrose 12.5 gm 03/13/18 13:19 D50w Syringe 50 Ml* IV PUSH .FOR FS < 60 - SS PRN FS < 60 Docusate Sodium 100 mg 03/13/18 21:00 03/25/18 07:57 Colace Cap* PO Not Given BID [facility] Insulin Human Lispro 0 - 5 units 03/19/18 12:00 03/24/18 17:37 Humalog* SUBCUT 4 units 1200,1700 CELENA Administration Protocol Insulin Human NPH 14 units 03/23/18 10:00 03/25/18 07:59 Insulin Nph(*) SUBCUT 14 units 0830 CELENA Administration Insulin Human NPH 5 units 03/25/18 21:00 Insulin Nph(*) SUBCUT BEDTIME CELENA Insulin Human Regular 6 units 03/23/18 10:00 03/25/18 07:58 Insulin Regular(*) SUBCUT 6 unit 0745 CELENA Administration Lisinopril 2.5 mg 03/15/18 09:00 03/25/18 07:57 Prinivil Tab* PO 2.5 mg DAILY CELENA Administration Magnesium Hydroxide 30 ml 03/13/18 13:05 Milk Of [place]app[place] Liq* PO Q6H PRN CONSTIPATION Mometasone Furoate/Formoterol Fumar 2 puff 03/13/18 21:00 03/25/18 07:58 Dulera 200/5 Mdi* INH 2 puff BID CELENA Administration Rivaroxaban 10 mg 03/14/18 09:00 03/25/18 07:58 Xarelto(*) PO 10 mg DAILY CELENA Administration Senna 2 tab 03/13/18 13:05 Senokot Tab* PO BEDTIME PRN CONSTIPATION Sodium Chloride 1 spray 03/18/18 18:38 03/23/18 10:30 Sodium Chloride 0.65% Nasal [place]* BOTH NARES 1 drop Q4H PRN Administration CONGESTION Vital Signs: Vital Signs Temp Pulse Resp BP Pulse Ox 99.9 F 78 20 128/54 95 03/25/18 05:46 03/25/18 05:46 03/25/18 05:46 03/25/18 05:46 03/25/18 05:46 Lab Results: Laboratory Results - last 24 hr 03/24/18 03/24/18 03/24/18 11:46 16:30 20:23 POC Glucose (mg/dL) 142 H 304 H 208 H POC Glucose Confirm 03/25/18 03/25/18 03/25/18 01:02 01:18 03:11 POC Glucose (mg/dL) 40 L 99 POC Glucose Confirm 32 L* 03/25/18 07:33 POC Glucose (mg/dL) 128 H POC Glucose Confirm Exam: GEN: no acute distress. alert and appropriate. LUNGS: clear bilaterally but poor air movement consistent with h/o copd CV: regular rate and rhythm ABD: + bowel sounds, soft, non-tender, non-distended EXT: no edema Assessment/Plan: 73yo man with DM and COPD s/p left hip fracture. 1. Left hip fracture s/p gamma nail: WBAT. PT/OT. Frederic ou 03/23/18. f/u with Dr. Dale after d/c. 2. IDDM: Continue NPH and Regular Insulin. Home regimen is NPH 15u qam and 9u qhs. Then Regular 7u qam. Currently on NPH to 14u and regular to 6u QAM. I will decrease PM NPH again given night hypoglycemia and add a bedtime snack. I discussed decreasing PM NPH to 4, but he thinks 5u would be better. He is eating. Consider adding 3 units of regular with dinner pending FS results. 3. HTN: Lisinopril 2.5mg. BP stable. 4. COPD: Edith Light. Oxygen prn. I d/w nursing not giving him too much as O2sat 100%. He uses intermittently at home. 5. Acute Blood Loss Anemia: CBC stable. Check at least weekly. 6. DVT Prophylaxis: Xarelto 7. Advanced Directives: Full Code 8. Estimated LOS: anticipate discharge on 04/04. d/w team today. 03/25/18 09:26
--- NOTE | 2018-03-25 12:38 | PMRUTEAM ---
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 Occupational Therapy: Current Status Upper Body Dressing Supervision Lower Body Dressing Supervision Bathing Supervision Toileting Supervision Toilet Transfer Supervision Shower Transfer Supervision Eating Independent Rec Therapy: Current Status Summary of Assessment and RT assessment complete and pt. is aware of RT Clinical Impression services. Pt. is engaged in leisure visits on the unit. Treatment Goals Patient will engage in recreation and leisure activities while on the unit Treatment Plan Will encourage and provide involvement in RT services Social Work: Current Status Discharge Plan return home with home care svs and family support Potential for Family Training TBD, pt lives alone w/ minimal family support Anticipated Discharge Home Destination Discharge With home care svs and family support Nutrition: Current Status Monitoring eating well w/consistent carb diet; avg 80% of meals consumed. Ate 85% of dinner last evening; 4 units insulin provided @ 1757 for FS 208-304. However, hypoglycemic overnight (32-40) w/ improvement to 99 by 0311. FS 128 this a.m. Insulin order adjusted. Last BM 03/24; bowel regimen in place. Will cont to follow. Tentative d/c 04/04. Goals: Physical Therapy: Updated Goals Independent bed mobility, transfers, ambulation and stairs with RW. Occupational Therapy: Initial Goals Goals to be Completed in (Days 14-21 ) Upper Body Bathing Routine Independent Lower Body Bathing Routine Modified Independent with Upper Body Dressing Routine Independent Lower Body Dressing Routine Modified Independent with Toilet Hygeine and Clothing Modified Independent with Management Routine Toilet Transfer Routine Modified Independent with Tub Transfer Routine Modified Independent with Functional Transfers for ADL Modified Independent with Grooming Routine Independent Feeding Routine Independent Light Housekeeping Tasks Modified Independent with Light Housekeeping Tasks light meal prep Assistive Devices Nutrition: Goals Intervention Goals 1. adequate po intake to support post-op healing and lean body mass without add'l wt gain 2. glycemic control within inpatient parameters; no s/sx hypo-hyperglycemia 3. regulation of post-op bowel pattern; no c/o constipation (or diarrhea) Social Work: Goals Discharge Plan return home with home care svs and family support Potential for Family Training TBD, pt lives alone w/ minimal family support Anticipated Discharge Home Destination Discharge With home care svs and family support Care Plan: Care Plan ADL's - Improve/Maintain Start: 03/13/18 15:10 Freq: DAILY Status: Active Target: Protocol: Activity Type Activity Date Activity User E-Sign Co-Sign Detail Recorded Client Recorded Date Recorded By Document 03/20/18 14:20 [id number] 03/20/18 14:20 [id number] 03/20/18 14:20 PMRU Outcome: ADL's/ADL Transfers Orders/Interventions Occupational Therapy Evaluation & Treatment Communication Tool in Patient Room Device Yes Address Deficits Secondary To: left hip ORIF Patient to receive OT 5x/wk for 60-120 Therex min/day Self Care Management Group Therapy UE/LE ADL's with Assist Yes: Yadiel ADL Transfers with Assist Yes: Yadiel Toileting: Transfers,Clothing Management Yes: Yadiel ,Hygeine w/Assist Light Kitchen/Laundry w/Assist Yes: Yadiel light meal prep Progression Toward Outcome/Goals Progressing Outcome/Goals Met Limited by poor endurance. Needs extra rest breaks today. Max HR 135 and minimal O2 sat 94. DVT Prophylaxis- Improve/Maintain Start: 03/13/18 15:37 Freq: QSHIFT Status: Active Target: Protocol: Activity Type Activity Date Activity User E-Sign Co-Sign Detail Recorded Client Recorded Date Recorded By Document 03/24/18 23:52 [id number] 03/24/18 23:58 [id number] 03/24/18 23:52 PMRU Outcome: DVT Prophylaxis Outcome/Goals Remains Free of DVT Free of complications from current DVT Complies with DVT Prophylaxis /Treatment TEDS Stockings on Every AM, Off at HS Progression Toward Outcome/Goals Progressing Discharge Planning - Improve/Maintain Start: 03/13/18 15:37 Freq: DAILY Status: Active Target: Protocol: Activity Type Activity Date Activity User E-Sign Co-Sign Detail Recorded Client Recorded Date Recorded By Document 03/24/18 23:52 [id number] 03/24/18 23:52 [id number] 03/24/18 23:52 PMRU Outcome: Discharge Planning Update Patient Family Yes Outcome/Goals Demonstrates Understanding of Discharge Plan Progression Toward Outcome/Goals Progressing Education-Improve/Maintain Start: 03/13/18 15:37 Freq: QSHIFT Status: Active Target: Protocol: Activity Type Activity Date Activity User E-Sign Co-Sign Detail Recorded Client Recorded Date Recorded By Document 03/24/18 23:52 [id number] 03/24/18 23:58 [id number] 03/24/18 23:52 PMRU Outcome: Education Outcome/Goals Encourage Questions Progression Toward Outcome/Goals Progressing /GI-Improve/Maintain Start: 03/13/18 15:37 Freq: QSHIFT Status: Active Target: Protocol: Activity Type Activity Date Activity User E-Sign Co-Sign Detail Recorded Client Recorded Date Recorded By Document 03/24/18 23:52 [id number] [id number] 03/24/18 23:58 [id number] 03/24/18 23:52 PMRU Outcome: Genitourinary/ Gastrointestinal Genitourinary- Outcome/Goals Maintain/ Achieve Urinary Continence Maintain/ Achieve Adequate Urinary Output Gastrointestinal-Outcome/Goals Maintain/ Achieve Bowel Regularity in Accordance with Pt's Baseline Progression Toward Outcome/Goals - Progressing Progression Toward Outcome/Goals - GI Progressing Medication Administration Start: 03/13/18 15:37 Freq: QSHIFT Status: Active Target: Protocol: Activity Type Activity Date Activity User E-Sign Co-Sign Detail Recorded Client Recorded Date Recorded By Document 03/24/18 23:52 [id number] RU-C03 03/24/18 23:58 [id number] 03/24/18 23:52 PMRU Outcome: Medication Administration Assess Patient Knowledge/Teach Med Yes Education for all Meds Outcome/Goals Patient Independent with Medication Administration at Home Demonstrates Understanding Progression Towards Outcome/Goals Progressing Is Patient Going Home on Lovenox? No Metabolic Status- Improve/Maintain Start: 03/13/18 15:37 Freq: QSHIFT Status: Active Target: Protocol: Activity Type Activity Date Activity User E-Sign Co-Sign Detail Recorded Client Recorded Date Recorded By Document 03/24/18 23:52 [id number] [email or web address]-C03 03/24/18 23:58 [id number] 03/24/18 23:52 PMRU Outcome: Metabolic Status Have Fingersticks Been Ordered Yes Fingerstick Order Frequency AC & HS Outcome/Goals Maintain/ Improve Metabolic Status Demonstrate Knowledge of Prevention/ Treatment of Metabolic Imbalances Progression Toward Outcome/Goals Progressing Mobility- Improve/Maintain Start: 03/18/18 17:05 Freq: DAILY Status: Active Target: Protocol: Activity Type Activity Date Activity User E-Sign Co-Sign Detail Recorded Client Recorded Date Recorded By Document 03/21/18 15:08 [id number] [id number] 03/21/18 15:08 [id number] 03/21/18 15:08 PMRU Outcome: Mobility Physical Therapy Evaluation and Yes Treatment Activity OOB with Assistance Yes WBAT Yes Device Yes: FWW Assistance Yes: CGA Patient to be seen 5x/wk for 60-120 min/ Therex day for: Mobility Training Gait Training W/C Mobility Balance Outcome/Goals Maintain/ Achieve Baseline Mobility Status Improve Mobility Status Demonstrates Proper Use of Assistive Devices Free from Complications of Immobility Progression Toward Outcome/Goals Progressing Outcome/Goals Met Improve Mobility Status Demonstrates Proper Use of Assistive Devices Bed Mobility Yes: Ind Transfers Yes: Mod I with walker Gait x ft Yes: Mod I with walker x150ft Up/Down Stairs Yes: Mod I With HEP Yes Pain/Comfort- Improve/Maintain Start: 03/13/18 15:37 Freq: QSHIFT Status: Active Target: Protocol: Activity Type Activity Date Activity User E-Sign Co-Sign Detail Recorded Client Recorded Date Recorded By Document 03/24/18 23:52 [id number] [id number] 03/24/18 23:58 [id number] 03/24/18 23:52 PMRU Outcome: Pain/Comfort Outcome/Goals Demonstrates Knowledge and Use of Available Comfort Measures Achieves Acceptable Comfort/Pain Level as Determined by Patient/Condit Maintain Comfort Level Allowing Patient to Fully Participate in Rehab Progression Toward Outcome/Goals Progressing Outcome/Goals Met Comment pt resting Respiratory - Improve/Maintain Start: 03/13/18 15:37 Freq: QSHIFT Status: Active Target: Protocol: Activity Type Activity Date Activity User E-Sign Co-Sign Detail Recorded Client Recorded Date Recorded By Document 03/24/18 23:52 [id number] [id number] 03/24/18 23:58 [id number] 03/24/18 23:52 PMRU Outcome: Respiratory Does Patient Have a Trach No Outcome/Goals Maintain/ Improve O2 Sat per MD Order Maintain/ Improve Baseline Respiratory Status Maintain/ Improve Activity Tolerance Remain Aspiration Free Progression Toward Outcome/Goals Progressing Safety- Improve/Maintain Start: 03/13/18 15:37 Freq: QSHIFT Status: Active Target: Protocol: Activity Type Activity Date Activity User E-Sign Co-Sign Detail Recorded Client Recorded Date Recorded By Document 03/24/18 23:52 [id number] 03/24/18 23:58 [id number] 03/24/18 23:52 PMRU Outcome: Safety Outcome/Goals Remain Free of Injury or Harm Cooperates with Safety Measures for Least Restrictive Environment Prevent Falls/ Injury Progression Toward Outcome/Goals Progressing Skin- Improve/Maintain Start: 03/13/18 15:37 Freq: QSHIFT Status: Active Target: Protocol: Activity Type Activity Date Activity User E-Sign Co-Sign Detail Recorded Client Recorded Date Recorded By Document 03/24/18 23:52 [email or web address] 03/24/18 23:58 [id number] 03/24/18 23:52 PMRU Outcome: Skin Skin Risk Level Low Skin Orders Air Mattress Turn/Position q2hr While in Bed Dressing Change Comments pillows Outcome/Goals Maintain/ Improve Skin Intergrity Maintain/ Improve Wound Status Surgical Incisions Healing Progression Toward Outcome/Goals Progressing Medicine Note: Length of Stay: [3 days] Anticipated Discharge Destination: Home Tentative Discharge Date: [02/26/18] Discharged to: [home]
[2018-03-25] MEDS: Insulin LISPRO* 1 UNITS UNIT SUBCUT SCH ×2 (13:19→17:17)
[2018-03-26] MEDS: Rivaroxaban TAB(*) 10 MG PO SCH (07:55)
[2018-03-26] MEDS: Lisinopril TAB* 5 MG PO SCH (08:01)
[2018-03-26] MEDS: Insulin REGULAR(*) 1 UNITS UNIT SUBCUT SCH (08:01)
[2018-03-26] MEDS: Ascorbic Acid TAB* 500 MG PO SCH (08:01)
[2018-03-26] MEDS: Docusate CAP* 100 MG PO SCH ×2 (08:02→20:48)
[2018-03-26] MEDS: Insulin NPH(*) 1 UNITS UNIT SUBCUT SCH ×2 (08:33→20:47)
[2018-03-26] MEDS: Mometasone/Formoter 200/5 MDI INH SCH ×2 (09:30→20:10)
--- NOTE | 2018-03-26 10:52 | PN ---
Progress Note Date of Service: 03/26/18 Note: DEANGELO OLSON was visited. Nursing and therapy notes read and reviewed. No chest pain, new shortness of breath or abdominal pain. Took ice cream snack last night. Current Medications: Active Medications Generic Name Dose Route Start Last Admin Trade Name Freq PRN Reason Stop Dose Admin Acetaminophen 650 mg 03/13/18 13:05 03/25/18 22:57 Tylenol Tab* PO 650 mg Q6H PRN Administration FEVER/PAIN Hydrocodone Bitart/Acetaminophen 1 tab 03/13/18 13:22 [place] 5-325 Tab* PO Q4H PRN PAIN - MODERATE TO SEVERE Albuterol 2 puff 03/16/18 14:58 Ventolin Hfa Inhaler* INH Q6H PRN SOB/WHEEZING Albuterol/Ipratropium 1 neb 03/14/18 12:40 03/23/18 20:15 Duoneb (Albuterol 2.5 Mg/Ipratropium 0.5 Mg) INH 1 neb Q6H PRN Administration SOB/WHEEZING Ascorbic Acid 500 mg 03/14/18 09:00 03/26/18 08:01 Vitamin C Tab* PO 500 mg DAILY CELENA Administration Dextrose 12.5 gm 03/13/18 13:19 D50w Syringe 50 Ml* IV PUSH .FOR FS < 60 - SS PRN FS < 60 Docusate Sodium 100 mg 03/13/18 21:00 03/26/18 08:02 Colace Cap* PO Not Given BID CELENA Insulin Human Lispro 0 - 5 units 03/19/18 12:00 03/25/18 17:17 Humalog* SUBCUT 3 units 1200,1700 CELENA Administration Protocol Insulin Human NPH 14 units 03/23/18 10:00 03/26/18 08:33 Insulin Nph(*) SUBCUT 14 units 0830 CELENA Administration Insulin Human NPH 5 units 03/25/18 21:00 03/25/18 20:57 Insulin Nph(*) SUBCUT 5 units BEDTIME CELENA Administration Insulin Human Regular 6 units 03/23/18 10:00 03/26/18 08:01 Insulin Regular(*) SUBCUT 6 unit 0745 CELENA Administration Lisinopril 2.5 mg 03/15/18 09:00 03/26/18 08:01 Prinivil Tab* PO 2.5 mg DAILY CELENA Administration Magnesium Hydroxide 30 ml 03/13/18 13:05 Milk Of [place] Liq* PO Q6H PRN CONSTIPATION Mometasone Furoate/Formoterol Fumar 2 puff 03/13/18 21:00 03/25/18 20:58 Dulera 200/5 Mdi* INH 2 puff BID CELENA Administration Rivaroxaban 10 mg 03/14/18 09:00 03/26/18 07:55 Xarelto(*) PO 10 mg DAILY CELENA Administration Senna 2 tab 03/13/18 13:05 Senokot Tab* PO BEDTIME PRN CONSTIPATION Sodium Chloride 1 spray 03/18/18 18:38 03/23/18 10:30 Sodium Chloride 0.65% Nasal [place]* BOTH NARES 1 drop Q4H PRN Administration CONGESTION Vital Signs: Vital Signs Temp Pulse Resp BP Pulse Ox 99.3 F 75 18 132/45 97 03/26/18 05:30 03/26/18 05:30 03/26/18 05:30 03/26/18 05:30 03/26/18 05:30 Lab Results: Laboratory Results - last 24 hr 03/25/18 03/25/18 03/25/18 11:40 16:38 20:25 POC Glucose (mg/dL) 129 H 266 H 303 H 03/26/18 07:23 POC Glucose (mg/dL) 281 H Exam: GEN: no acute distress. alert and appropriate. LUNGS: clear bilaterally but poor air movement consistent with h/o copd CV: regular rate and rhythm ABD: + bowel sounds, soft, non-tender, non-distended EXT: no edema Assessment/Plan: 73yo man with DM and COPD s/p left hip fracture. 1. Left hip fracture s/p gamma nail: WBAT. PT/OT. [place] ou 03/23/18. f/u with Dr. Dale after d/c. 2. IDDM: Continue NPH and Regular Insulin. Home regimen is NPH 15u qam and 9u qhs. Then Regular 7u qam. Currently on NPH 14u and regular 6u QAM. Then NPH 5u Qpm. Continue bedtime snack. 3. HTN: Lisinopril 2.5mg. BP stable. 4. COPD: [place]. Oxygen prn. I d/w nursing not giving him too much as O2sat 100%. He uses intermittently at home. 5. Acute Blood Loss Anemia: CBC stable. Check at least weekly. 6. DVT Prophylaxis: Xarelto 7. Advanced Directives: Full Code 8. Estimated LOS: anticipate discharge on Wednesday 03/28. 03/26/18 10:51
[2018-03-26] MEDS: Insulin LISPRO* 1 UNITS UNIT SUBCUT SCH ×2 (12:05→17:03)
[2018-03-27] MEDS: Acetaminophen TAB* 325 MG PO PRN ×2 (01:02→21:27)
[2018-03-27] MEDS: Insulin NPH(*) 1 UNITS UNIT SUBCUT SCH ×2 (08:02→21:22)
[2018-03-27] MEDS: Insulin REGULAR(*) 1 UNITS UNIT SUBCUT SCH (08:02)
[2018-03-27] MEDS: Ascorbic Acid TAB* 500 MG PO SCH (08:04)
[2018-03-27] MEDS: Lisinopril TAB* 5 MG PO SCH (08:05)
[2018-03-27] MEDS: Rivaroxaban TAB(*) 10 MG PO SCH (08:05)
[2018-03-27] MEDS: Docusate CAP* 100 MG PO SCH ×2 (08:06→21:23)
--- NOTE | 2018-03-27 09:08 | PN ---
Progress Note Date of Service: 03/27/18 Note: DEANGELO OLSON was visited. Nursing notes read and reviewed. No therapy 03/26 due to holiday. No new issues overnight. Looking forward to d/c tomorrow. Current Medications: Active Medications Generic Name Dose Route Start Last Admin Trade Name Freq PRN Reason Stop Dose Admin Acetaminophen 650 mg 03/13/18 13:05 03/27/18 01:02 Tylenol Tab* PO 650 mg Q6H PRN Administration FEVER/PAIN Hydrocodone Bitart/Acetaminophen 1 tab 03/13/18 13:22 [place] 5-325 Tab* PO Q4H PRN PAIN - MODERATE TO SEVERE Albuterol 2 puff 03/16/18 14:58 Ventolin Hfa Inhaler* INH Q6H PRN SOB/WHEEZING Albuterol/Ipratropium 1 neb 03/14/18 12:40 03/23/18 20:15 Duoneb (Albuterol 2.5 Mg/Ipratropium 0.5 Mg) INH 1 neb Q6H PRN Administration SOB/WHEEZING Ascorbic Acid 500 mg 03/14/18 09:00 03/27/18 08:04 Vitamin C Tab* PO 500 mg DAILY CELENA Administration Dextrose 12.5 gm 03/13/18 13:19 D50w Syringe 50 Ml* IV PUSH .FOR FS < 60 - SS PRN FS < 60 Docusate Sodium 100 mg 03/13/18 21:00 03/27/18 08:06 Colace Cap* PO Not Given BID CELENA Insulin Human Lispro 0 - 5 units 03/19/18 12:00 03/26/18 17:03 Humalog* SUBCUT 2 units 1200,1700 CELENA Administration Protocol Insulin Human NPH 14 units 03/23/18 10:00 03/27/18 08:02 Insulin Nph(*) SUBCUT 14 units 0830 CELENA Administration Insulin Human NPH 5 units 03/25/18 21:00 03/26/18 20:47 Insulin Nph(*) SUBCUT 5 units BEDTIME CELENA Administration Insulin Human Regular 6 units 03/23/18 10:00 03/27/18 08:02 Insulin Regular(*) SUBCUT 6 unit 0745 CELENA Administration Lisinopril 2.5 mg 03/15/18 09:00 03/27/18 08:05 Prinivil Tab* PO 2.5 mg DAILY CELENA Administration Magnesium Hydroxide 30 ml 03/13/18 13:05 Milk Of [place] Liq* PO Q6H PRN CONSTIPATION Mometasone Furoate/Formoterol Fumar 2 puff 03/13/18 21:00 03/26/18 20:10 Dulera 200/5 Mdi* INH 2 puff BID CELENA Administration Rivaroxaban 10 mg 03/14/18 09:00 03/27/18 08:05 Xarelto(*) PO 10 mg DAILY CELENA Administration Senna 2 tab 03/13/18 13:05 Senokot Tab* PO BEDTIME PRN CONSTIPATION Sodium Chloride 1 spray 03/18/18 18:38 03/23/18 10:30 Sodium Chloride 0.65% Nasal [place]* BOTH NARES 1 drop Q4H PRN Administration CONGESTION Vital Signs: Vital Signs Temp Pulse Resp BP Pulse Ox 98.2 F 77 18 131/58 97 03/27/18 05:43 03/27/18 05:43 03/27/18 05:43 03/27/18 05:43 03/27/18 05:43 Lab Results: Laboratory Results - last 24 hr 03/26/18 03/26/18 03/26/18 11:32 16:05 20:08 POC Glucose (mg/dL) 294 H 215 H 172 H 03/27/18 07:39 POC Glucose (mg/dL) 159 H Exam: GEN: no acute distress. alert and appropriate. LUNGS: clear bilaterally but poor air movement consistent with h/o copd CV: regular rate and rhythm ABD: + bowel sounds, soft, non-tender, non-distended EXT: no edema Assessment/Plan: 73yo man with DM and COPD s/p left hip fracture. 1. Left hip fracture s/p gamma nail: WBAT. PT/OT. [place] out 03/23/18. f/u with Dr. Dale after d/c. 2. IDDM: Continue NPH and Regular Insulin. Home regimen is NPH 15u qam and 9u qhs. Then Regular 7u qam. Currently on NPH 14u and regular 6u QAM. Then NPH 5u Qpm. Continue bedtime snack. 3. HTN: Lisinopril 2.5mg. BP stable. 4. COPD: [place]. Oxygen prn. I d/w nursing not giving him too much as O2sat 100%. He uses intermittently at home. 5. Acute Blood Loss Anemia: CBC stable. Check at least weekly. 6. DVT Prophylaxis: Xarelto 7. Advanced Directives: Full Code 8. Estimated LOS: anticipate discharge on Wednesday 03/28. 03/27/18 09:07
[2018-03-27] MEDS: Mometasone/Formoter 200/5 MDI INH SCH ×2 (09:42→20:41)
[2018-03-27] MEDS: Insulin LISPRO* 1 UNITS UNIT SUBCUT SCH ×2 (11:58→17:04)
[2018-03-27] MEDS ORDERED: Dextrose 50% Syringe 50 ML* 25 GM/50 ML SYRINGE IV PUSH PRN (21:02)
[2018-03-27] MEDS ORDERED: Insulin LISPRO* 1 UNITS UNIT SUBCUT ONE ×2 (21:02)
[2018-03-28 06:00] LABS: ABS Basophils 0.1 10^3/ul (0-0.2); ABS Eosinophils 0.3 10^3/ul (0-0.6); ABS Lymphocytes 1.2 10^3/ul (1.0-4.8); ABS Monocytes 0.7 10^3/ul (0-0.8); ABS Neutrophils 4.3 10^3/ul (1.5-7.7); ABS Nucleated RBC 0 10^3/ul; Eosinophil % 4.9 % (0-6); Hematocrit 31 % (42-52); Hemoglobin 10.7 g/dl (14.0-18.0); Lymphocyte % 18.4 % (25-47); Mean Corpuscular HGB Conc 35 g/dl (31-36); Mean Corpuscular Hemoglobin 32 pg (27-31); Mean Corpuscular Volume 94 fL (80-94); Mean Platelet Volume 6.9 um3 (7.4-10.4); Nucleated Red Blood Cells % 0; Platelet Count 613 10^3/ul (150-450); Red Blood Count 3.33 10^6/ul (4.00-5.40); Red Cell Distribution Width 16 % (10.5-15); White Blood Count 6.5 10^3/ul (3.5-10.8)
[2018-03-28 06:17] LABS: EGFR Non-African American 100.3 (>60)
[2018-03-28] MEDS: Lisinopril TAB* 5 MG PO SCH (09:23)
[2018-03-28] MEDS: Docusate CAP* 100 MG PO SCH (09:23)
[2018-03-28] MEDS: Ascorbic Acid TAB* 500 MG PO SCH (09:23)
[2018-03-28] MEDS: Insulin REGULAR(*) 1 UNITS UNIT SUBCUT SCH (09:24)
[2018-03-28] MEDS: Insulin NPH(*) 1 UNITS UNIT SUBCUT SCH (09:24)
[2018-03-28] MEDS: Mometasone/Formoter 200/5 MDI INH SCH (09:24)
[2018-03-28] MEDS: Rivaroxaban TAB(*) 10 MG PO SCH (09:24)
[2018-03-28 09:28] VITALS: BP 138/44
--- NOTE | 2018-03-28 09:33 | PN ---
Progress Note Date of Service: 03/28/18 Note: DEANGELO OLSON was visited. Nursing and therapy notes read and reviewed. No chest pain, new shortness of breath or abdominal pain. Last night for dinner he had a half brownie and at HS glucose was 511. He received 6u lispro along with scheduled NPH and this morning FS 67. He feels good and ready for d/c home. He has dealt with fluctuations in his diabetes for a while and f/u with Dr. March. Current Medications: Active Medications Generic Name Dose Route Start Last Admin Trade Name Freq PRN Reason Stop Dose Admin Acetaminophen 650 mg 03/13/18 13:05 03/27/18 21:27 Tylenol Tab* PO 650 mg Q6H PRN Administration FEVER/PAIN Hydrocodone Bitart/Acetaminophen 1 tab 03/13/18 13:22 [place] 5-325 Tab* PO Q4H PRN PAIN - MODERATE TO SEVERE Albuterol 2 puff 03/16/18 14:58 Ventolin Hfa Inhaler* INH Q6H PRN SOB/WHEEZING Albuterol/Ipratropium 1 neb 03/14/18 12:40 03/23/18 20:15 Duoneb (Albuterol 2.5 Mg/Ipratropium 0.5 Mg) INH 1 neb Q6H PRN Administration SOB/WHEEZING Ascorbic Acid 500 mg 03/14/18 09:00 03/28/18 09:23 Vitamin C Tab* PO 500 mg DAILY CELENA Administration Dextrose 12.5 gm 03/27/18 21:02 D50w Syringe 50 Ml* IV PUSH .FOR FS < 60 - SS PRN FS < 60 Docusate Sodium 100 mg 03/13/18 21:00 03/28/18 09:23 Colace Cap* PO Not Given BID CELENA Insulin Human Lispro 0 - 5 units 03/19/18 12:00 03/27/18 17:04 Humalog* SUBCUT Not Given 1200,1700 [facility] Protocol Insulin Human NPH 14 units 03/23/18 10:00 03/28/18 09:24 Insulin Nph(*) SUBCUT 14 units 0830 CELENA Administration Insulin Human NPH 5 units 03/25/18 21:00 03/27/18 21:22 Insulin Nph(*) SUBCUT 5 units BEDTIME CELENA Administration Insulin Human Regular 6 units 03/23/18 10:00 03/28/18 09:24 Insulin Regular(*) SUBCUT 6 unit 0745 CELENA Administration Lisinopril 2.5 mg 03/15/18 09:00 03/28/18 09:23 Prinivil Tab* PO 2.5 mg DAILY CELENA Administration Magnesium Hydroxide 30 ml 03/13/18 13:05 Milk Of [place]jj Liq* PO Q6H PRN CONSTIPATION Mometasone Furoate/Formoterol Fumar 2 puff 03/13/18 21:00 03/28/18 09:24 Dulera 200/5 Mdi* INH 2 puff BID CELENA Administration Rivaroxaban 10 mg 03/14/18 09:00 03/28/18 09:24 Xarelto(*) PO 10 mg DAILY CELENA Administration Senna 2 tab 03/13/18 13:05 Senokot Tab* PO BEDTIME PRN CONSTIPATION Sodium Chloride 1 spray 03/18/18 18:38 03/23/18 10:30 Sodium Chloride 0.65% Nasal [place]* BOTH NARES 1 drop Q4H PRN Administration CONGESTION Vital Signs: Vital Signs Temp Pulse Resp BP Pulse Ox 98.9 F 100 28 138/44 98 03/28/18 09:27 03/28/18 09:27 03/28/18 09:27 03/28/18 09:27 03/28/18 09:27 Lab Results: Laboratory Results - last 24 hr 03/27/18 03/27/18 03/27/18 11:27 16:32 20:06 WBC RBC Hgb Hct MCV MCH MCHC RDW Plt Count MPV Neut % (Auto) Lymph % (Auto) [place] % (Auto) Eos % (Auto) Baso % (Auto) Absolute Neuts (auto) Absolute Lymphs (auto) Absolute Monos (auto) Absolute Eos (auto) Absolute Basos (auto) Absolute Nucleated RBC Nucleated RBC % Sodium Potassium Chloride Carbon Dioxide Anion Gap BUN Creatinine Est GFR ( Amer) Est GFR (Non-Af Amer) BUN/Creatinine Ratio Glucose POC Glucose (mg/dL) 120 H 148 H > 444 H* POC Glucose Confirm Calcium Total Bilirubin AST ALT Alkaline Phosphatase Total Protein Albumin Globulin Albumin/Globulin Ratio 03/27/18 03/27/18 03/28/18 20:20 23:36 05:50 WBC 6.5 RBC 3.33 L Hgb 10.7 L Hct 31 L MCV 94 MCH 32 H MCHC 35 RDW 16 H Plt Count 613 H MPV 6.9 L Neut % (Auto) 65.3 Lymph % (Auto) 18.4 L [place] % (Auto) 10.2 H Eos % (Auto) 4.9 Baso % (Auto) 1.2 Absolute Neuts (auto) 4.3 Absolute Lymphs (auto) 1.2 Absolute Monos (auto) 0.7 Absolute Eos (auto) 0.3 Absolute Basos (auto) 0.1 Absolute Nucleated RBC 0 Nucleated RBC % 0 Sodium Potassium Chloride Carbon Dioxide Anion Gap BUN Creatinine Est GFR ( Amer) Est GFR (Non-Af Amer) BUN/Creatinine Ratio Glucose POC Glucose (mg/dL) 246 H POC Glucose Confirm 517 H* Calcium Total Bilirubin AST ALT Alkaline Phosphatase Total Protein Albumin Globulin Albumin/Globulin Ratio 03/28/18 03/28/18 05:50 07:25 WBC RBC Hgb Hct MCV MCH MCHC RDW Plt Count MPV Neut % (Auto) Lymph % (Auto) [place] % (Auto) Eos % (Auto) Baso % (Auto) Absolute Neuts (auto) Absolute Lymphs (auto) Absolute Monos (auto) Absolute Eos (auto) Absolute Basos (auto) Absolute Nucleated RBC Nucleated RBC % Sodium 137 Potassium 4.6 Chloride 102 Carbon Dioxide 29 Anion Gap 6 BUN 22 Creatinine 0.76 Est GFR ( Amer) 121.3 Est GFR (Non-Af Amer) 100.3 BUN/Creatinine Ratio 28.9 H Glucose 64 L POC Glucose (mg/dL) 93 POC Glucose Confirm Calcium 8.8 Total Bilirubin 0.60 AST 14 ALT 11 Alkaline Phosphatase 93 Total Protein 5.5 L Albumin 3.0 L Globulin 2.5 Albumin/Globulin Ratio 1.2 Exam: GEN: no acute distress. alert and appropriate. LUNGS: clear bilaterally but poor air movement consistent with h/o copd CV: regular rate and rhythm ABD: + bowel sounds, soft, non-tender, non-distended EXT: no edema Assessment/Plan: 73yo man with DM and COPD s/p left hip fracture. 1. Left hip fracture s/p gamma nail: WBAT. PT/OT. [place] out 03/23/18. f/u with Dr. Dale after d/c. 2. IDDM: Continue NPH and Regular Insulin. Home regimen is NPH 15u qam and 9u qhs. Then Regular 7u qam. Currently on NPH 14u and regular 6u QAM. Then NPH 5u Qpm. Continue bedtime snack as needed. 3. HTN: Lisinopril 2.5mg. BP stable. 4. COPD: Will use spiriva at home. Oxygen prn. 5. Acute Blood Loss Anemia: has been stable 6. DVT Prophylaxis: Xarelto 11 more days. 7. Advanced Directives: Full Code 8. Estimated LOS: anticipate discharge today 03/28/18 09:34
--- NOTE | 2018-03-28 15:00 | DS ---
CC: Dr. March; Dr. Dale REHABILITATION DISCHARGE: DATE OF ADMISSION: 03/13/18 DATE OF DISCHARGE: 03/28/18 REASON FOR ADMISSION: Left hip fracture. PRIMARY CARE PROVIDER: Dr. March. ORTHOPEDIC SURGEON: Dr. Dale. HISTORY OF PRESENT ILLNESS: For full details of his acute hospitalization leading up to his admission, please see the note dictated by Dr. Foss on as well as Dr. March's history and physical from 03/10/18 and discharge summary on 03/13/18. REHABILITATION COURSE: During his time on the [facility], he has intermittently required oxygen for his longstanding COPD. He already had this set up at home. In addition, he has had difficulty with control of his diabetes mellitus. His regimen of NPH and regular have been adjusted and he has been educated on following an appropriate diet. He was offered Meals on Wheels for discharge, but he has declined that. His ex- will help make sure that he has appropriate food available to him. He has continued using Xarelto for DVT prophylaxis and has 11 more days left of treatment. His nessa were removed from his surgical site on 03/23/18. He continues weightbearing as tolerated precautions. He has remained stable with regards to his blood pressure on a very low dose of lisinopril 2.5 mg q. day. This will be his discharging dose. He has used Dulera in the hospital in substitution for Spiriva. He will return to Spiriva at discharge. He was noted to have acute blood loss anemia on admission, but his CBC has remained stable and he has not required any transfusion. During his time on the [facility], he participated well in physical therapy, and at the time of discharge he is independent with bed mobility, transfers with a walker, ambulating with a walker on oxygen and is climbing stairs with a walker or rails. He is independent with a home exercise program. He also participated well with occupational therapy and at the time of discharge, he is independent eating, bathing and tub transfers with a tub transfer with bench and walker, dressing with sock aid and paper feeder and toileting using the walker. He is also independent with simple household tasks and meal prep. He has been advised to take frequent breaks. DISCHARGE CONDITION: Fair. DISCHARGE DISPOSITION: Home. DISCHARGE MEDICATIONS: 1. Acetaminophen 650 mg q.6 hours p.r.n. pain. 2. NPH insulin 14 units q.a.m. and 5 units q.h.s. 3. Regular insulin 6 units q.a.m. 4. Lisinopril 2.5 mg daily, which is a new dose. 5. Xarelto 10 mg daily for 11 more days. 6. Calcium carbonate 2500 mg q.p.m. 7. Multivitamin with minerals 1 q.a.m. 8. Advair Diskus 250/50 one puff b.i.d. 9. Vitamin B12 of 1000 mcg q. day. FOLLOWUP: 1. A referral has been sent to [facility] for home care. 2. Follow up with Dr. March within 1 to 2 weeks. 3. Follow up with Dr. Thaddeus Dale in 1 to 2 weeks. DISCHARGE DIAGNOSES: 1. Left hip fracture, status post Gamma nail placement. 2. Chronic obstructive pulmonary disease, oxygen dependent. 3. Poorly controlled diabetes mellitus, insulin dependent. 4. Benign prostatic hypertrophy. 5. History of hypertension. 6. Glaucoma. 7. Acute post-operative Anemia [id number]/[facility] #: [id number] [facility]
== END 2018-03-28 11:00 | disposition home health service (06) | DRG 560 ==
LOC: PMRU 11:28
PROVIDERS: ADMIT Physical Medicine & Rehabilitation; ATTEND Physical Medicine & Rehabilitation
PROC: F07Z5ZZ Bed Mobility Treatment (ICD-10-PCS; principal; 2018-03-13)
PROC: F07Z9ZZ Gait Training/Functional Ambulation Treatment (ICD-10-PCS; 2018-03-13)
PROC: F07Z8ZZ Transfer Training Treatment (ICD-10-PCS; 2018-03-13)
PROC: F08Z0ZZ Bathing/Showering Techniques Treatment (ICD-10-PCS; 2018-03-13)
PROC: F08Z1ZZ Dressing Techniques Treatment (ICD-10-PCS; 2018-03-13)
PROC: F08Z3ZZ Feeding/Eating Treatment (ICD-10-PCS; 2018-03-13)
PROC: 30233N1 Transfusion of Nonautologous Red Blood Cells into Peripheral Vein, Percutaneous Approach (ICD-10-PCS; 2018-03-14)
DX: S72.142D Displaced intertrochanteric fracture of left femur, subsequent encounter for closed fracture with routine healing (principal); D62 Acute posthemorrhagic anemia; Z99.81 Dependence on supplemental oxygen; W18.30XD Fall on same level, unspecified, subsequent encounter; J44.9 Chronic obstructive pulmonary disease, unspecified; E11.9 Type 2 diabetes mellitus without complications; N40.0 Benign prostatic hyperplasia without lower urinary tract symptoms; R80.9 Proteinuria, unspecified; H40.9 Unspecified glaucoma; I10 Essential (primary) hypertension; Z79.4 Long term (current) use of insulin; Z79.899 Other long term (current) drug therapy; Z87.891 Personal history of nicotine dependence
CPT/HCPCS: 36415; 80053; 82947; 85025; 86850; 86900; 86901; 86922; 94640; A9270-GY; P9040

== ENCOUNTER 2018-04-15 11:50 | Emergency (ER) | payer MEDICARE ==
--- NOTE | 2018-04-15 12:10 | ED ---
HPI Diabetic - HPI Summary HPI Summary: 73 y/o male BIBA s/p syncopal episode earlier today, resolved spontaneously. Pt found unresponsive, staring blankly ahead at home. Blood sugar 19. Pt had physical therapy this morning due to broken hip. Pt had orange juice and 2 cookies for breakfast. PMHx DM type I pt took his injection insulin this morning( 14 and 6). Pt asymptomatic in the ED. This is scribe Ed Valentina documenting for attending Renato Bacon MD - History Of Current Complaint Time Seen by Provider: 04/15/18 12:05 Hx Obtained From: Patient Onset/Duration: Sudden Onset, Resolved Aggravating: Nothing Alleviating: Nothing Associated Signs & Symptoms: Decreased Level of Conciousness - earlier today Related History: DM I - Allergies/Home Medications Allergies/Adverse Reactions: Allergies Allergy/AdvReac Type Severity Reaction Status Date / Time No Known Allergies Allergy Verified 04/15/18 12:09 Home Medications: Home Medications Insulin NPH(*) 14 units SUBCUT QAM 04/15/18 [History Confirmed 04/15/18] PMH/Surg Hx/FS Hx/Imm Hx Previously Healthy: No Endocrine/Hematology History: Reports: Hx Diabetes - type I diabetis diagnosed age 13, Hx Anemia Denies: Hx Thyroid Disease Cardiovascular History: Reports: Hx Hypertension - uses medication Respiratory History: Reports: Hx Chronic Obstructive Pulmonary Disease (COPD) - 2L O2 prn @ home, Other Respiratory Problems/Disorders - COPD, emphysema, has O2 at home and uses prn Denies: Hx Asthma GI History: Denies: Hx Jaundice, Hx Ulcer History: Comment Only: Other Problems/Disorders - oliguria Musculoskeletal History: Reports: Hx Bursitis, Other Musculoskeletal History - rotator cuff injury right and left shoulder related to bowling Sensory History: Reports: Hx Contacts or Glasses, Hx Glaucoma - h/o Denies: Hx Cataracts, Hx Hearing Aid, Hx Hearing Problem Opthamlomology History: Reports: Hx Contacts or Glasses, Hx Glaucoma - h/o Denies: Hx Cataracts Neurological History: Denies: Hx Dementia - Cancer History Hx Chemotherapy: No Hx Radiation Therapy: No - Surgical History Surgery Procedure, Year, and Place: Glaucoma surgery november 2016 Hx Anesthesia Reactions: No Infectious Disease History: Denies: Hx Clostridium Difficile, Hx Hepatitis, Hx Human Immunodeficiency Virus (HIV), Hx of Known/Suspected MRSA, Hx Shingles, Hx Tuberculosis, Hx Known/ Suspected VRE, Hx Known/Suspected VRSA, History Other Infectious Disease - Family History Known Family History: Negative: Hypertension - Social History Alcohol Use: None Substance Use Type: Reports: None Smoking Status (MU): Former Smoker Type: Cigarettes Amount Used/How Often: pk a day Have You Smoked in the Last Year: No Review of Systems Constitutional: Negative Eyes: Negative ENT: Negative Cardiovascular: Negative Respiratory: Negative Gastrointestinal: Negative Genitourinary: Negative Musculoskeletal: Negative Skin: Negative Positive: Syncope Psychological: Normal All Other Systems Reviewed And Are Negative: Yes Physical Exam - Summary Physical Exam Summary: VITAL SIGNS: Reviewed. GENERAL: Patient is a well-developed and elderly male who is lying comfortable in the stretcher. Patient is not in any acute respiratory distress. HEAD AND FACE: No signs of trauma. No ecchymosis, hematomas or skull depressions. No sinus tenderness. EYES: PERRLA, EOMI x 2, No injected conjunctiva, no nystagmus. EARS: Hearing grossly intact. Ear canals and tympanic membranes are within normal limits. MOUTH: Oropharynx within normal limits. NECK: Supple, trachea is midline, no adenopathy, no JVD, no carotid bruit, no c- spine tenderness, neck with full ROM. CHEST: Symmetric, no tenderness at palpation LUNGS: Clear to auscultation bilaterally. No wheezing or crackles. CVS: Regular rate and rhythm, S1 and S2 present, no murmurs or gallops appreciated. ABDOMEN: Soft, non-tender. No signs of distention. No rebound no guarding, and no masses palpated. Bowel sounds are normal. EXTREMITIES: FROM in all major joints, no edema, no cyanosis or clubbing. NEURO: Pt is alert and cachectic. Pt is now back to his normal state. SKIN: Dry and warm Triage Information Reviewed: Yes Vital Signs Reviewed: Yes Diagnostics - Laboratory Result Diagrams: 04/15/18 12:38 04/15/18 12:38 Lab Statement: Any lab studies that have been ordered have been reviewed, and results considered in the medical decision making process. - EKG 1 EKG Interpretation: 12:17 - SR @ [address] elevations. Normal axis. Diabetic Course/Dx - Course Assessment/Plan: This patient is a 73 -year-old male who presents to the emergency department via ambulance with a chief complaint of having a syncopal episode. Apparently the patient was hypoglycemic with a fingerstick of 19. The patient was given D10 and slowly he regained consciousness and now on arrival to the emergency department the patient is alert and oriented 3. Patient has no complaints. Patient reports that he was at physical therapy and he only had an oranges with 2 cookies however he had on his insulin. Physical sounds shows an slight anemia, glucose of 49. The patient was given dextrose and he is being observe in the emergency room. The patient was observed for a couple hours and the last fingerstick he was 200. The patient is back to his baseline he is alert and oriented 3. The patient will be discharged home with a family member. They will observe him for a couple hours and there was instructed to return to the emergency department. He wouldve any other symptom. The patient and family members understand. All results of findings were discussed with the patient. They will follow-up with Dr. March. - Diagnoses Provider Diagnoses: Hypoglycemia Discharge - Sign-Out/Discharge Documenting (check all that apply): Patient Departure - Discharge Plan Condition: Stable Disposition: HOME Patient Education Materials: Hypoglycemia in a Person with Diabetes (ED) Referrals: Allen March MD [Primary Care Provider] - 4 Days (PLEASE F/U IN 3-5 DAYS) Additional Instructions: RETURN TO THE ED FOR CHANGING/WORSENING SYMPTOMS - Billing Disposition and Condition Condition: STABLE Disposition: Home
[2018-04-15 12:45] LABS: ABS Basophils 0.1 10^3/ul (0-0.2); ABS Eosinophils 0.2 10^3/ul (0-0.6); ABS Lymphocytes 0.8 10^3/ul (1.0-4.8); ABS Monocytes 0.5 10^3/ul (0-0.8); ABS Neutrophils 8.6 10^3/ul (1.5-7.7); ABS Nucleated RBC 0 10^3/ul; Eosinophil % 1.9 % (0-6); Hematocrit 40 % (42-52); Hemoglobin 13.1 g/dl (14.0-18.0); Lymphocyte % 7.8 % (25-47); Mean Corpuscular HGB Conc 33 g/dl (31-36); Mean Corpuscular Hemoglobin 31 pg (27-31); Mean Corpuscular Volume 94 fL (80-94); Mean Platelet Volume 8.1 um3 (7.4-10.4); Nucleated Red Blood Cells % 0; Platelet Count 244 10^3/ul (150-450); Red Blood Count 4.24 10^6/ul (4.00-5.40); Red Cell Distribution Width 16 % (10.5-15); White Blood Count 10.2 10^3/ul (3.5-10.8)
[2018-04-15 13:04] LABS: EGFR Non-African American 97.3 (>60)
[2018-04-15] MEDS ORDERED: Dextrose 50% Syringe 50 ML* 25 GM/50 ML SYRINGE IV PUSH PRN (13:11)
[2018-04-15] MEDS ORDERED: Dextrose 50% Syringe 50 ML* 25 GM/50 ML SYRINGE ONE (13:12)
[2018-04-15] MEDS ORDERED: Dextrose 50% Syringe 50 ML* 25 GM/50 ML SYRINGE IV PUSH ONE (13:13)
[2018-04-15 15:33] VITALS: BP 135/58
== END 2018-04-15 15:32 | disposition home or self-care (01) ==
LOC: ED 11:50
DX: E10.649 Type 1 diabetes mellitus with hypoglycemia without coma (principal); Z79.4 Long term (current) use of insulin; I10 Essential (primary) hypertension; J44.9 Chronic obstructive pulmonary disease, unspecified; Z99.81 Dependence on supplemental oxygen; Z87.891 Personal history of nicotine dependence
CPT/HCPCS: 36415; 80053; 85025; 86140; 93005; 96374; 99284